=== PATIENT | female | born 1980 | race Caucasian/White ===

== ENCOUNTER 2018-06-23 10:54 | Emergency (ER) | payer BC ==
[2018-06-23 13:08] VITALS: BP 119/78
--- NOTE | 2018-06-23 13:22 | UC ---
Complaint Female HPI - HPI Summary HPI Summary: "I have a uti" for past few days and the beginning of BV. Describes as frequent - burning urination plus starting to note a vaginal d/c with odor. states no concern for std but would like urine tested as a precaution. no abdominal pain, flank pain or fever. states has a hx of uti's and BV and this is the same. Took AZO GRID MOLDER. - History Of Current Complaint Chief Complaint: UCGU Stated Complaint: UTI Time Seen by Provider: 06/23/18 13:15 Hx Obtained From: Patient Hx Last Menstrual Period: 05/31/18 Onset/Duration: Gradual Onset Timing: Constant Pain Intensity: 0 Aggravating Factor(s): Nothing Alleviating Factor(s): Nothing Associated Signs And Symptoms: Negative: Fever, Back Pain - Allergies/Home Medications Allergies/Adverse Reactions: Allergies Allergy/AdvReac Type Severity Reaction Status Date / Time NSAIDS (Non-Steroidal Allergy Difficulty Verified 06/23/18 13:00 Anti-Inflamma Breathing Home Medications: Home Medications Cranberry Fruit Concentrate [Azo Cranberry] 250 mg PO BID PRN 06/23/18 [History Confirmed 06/23/18] PMH/Surg Hx/FS Hx/Imm Hx - Additional Past Medical History Additional PMH: BV, UTI's GI/ History: Gastroesophageal Reflux Psychological History: Anxiety - Surgical History Surgical History: Yes Surgery Procedure, Year, and Place[place] [facility] [place] Family History Known Family History: Positive: None Negative: Cardiac Disease, Hypertension, Diabetes - Social History Occupation: Employed Full-time Alcohol Use: Daily Substance Use Type: None Smoking Status (MU): Current Some Day Smoker Type: Cigarettes Amount Used/How Often: 2-3 CIGS DAILY Household Exposure Type: Cigarettes - Immunization History Most Recent Influenza Vaccination: none Vaccination Up to Date: Yes Review of Systems Constitutional: Negative Skin: Negative Eyes: Negative ENT: Negative Respiratory: Negative Cardiovascular: Negative Gastrointestinal: Negative Genitourinary: Dysuria, Frequency, Urgency, Vaginal/Penile Discharge Motor: Negative Neurovascular: Negative Musculoskeletal: Negative Neurological: Negative Psychological: Negative Is Patient Immunocompromised?: No All Other Systems Reviewed And Are Negative: Yes Physical Exam Triage Information Reviewed: Yes Appearance: Well-Appearing Vital Signs: Initial Vital Signs Temp 98.3 F 06/23/18 13:01 Pulse 80 06/23/18 13:01 Resp 18 06/23/18 13:01 BP 119/78 06/23/18 13:01 Pulse Ox 96 06/23/18 13:01 Eyes: Positive: Conjunctiva Clear ENT: Positive: Normal ENT inspection Neck: Positive: Supple, Nontender, No Lymphadenopathy Respiratory: Positive: Lungs clear, Normal breath sounds Cardiovascular: Positive: RRR, No Murmur Abdomen Description: Positive: Nontender, No Organomegaly, Soft. Negative: CVA Tenderness (R), CVA Tenderness (L), Distended, Guarding Bowel Sounds: Negative: Present Pelvic Exam: Positive: Other - Pt declined citing hx uti's / BV and this is the same thus does not feel necessary. Musculoskeletal: Positive: ROM Intact Neurological: Positive: Alert Psychological: Positive: Age Appropriate Behavior Skin Exam: Normal Diagnostics - Laboratory Diagnostic Studies Completed/Ordered: urine culture, gc/chlamydia are pending. Complaint Female Dx - Course Course Of Treatment: since pt declined pelvic exam, I am going to tx presumptively for uti and BV. - Differential Dx/Diagnosis Provider Diagnoses: Dysuria. Vaginitis Discharge - Sign-Out/Discharge Documenting (check all that apply): Patient Departure All imaging exams completed and their final reports reviewed: No Studies - Discharge Plan Condition: Stable Disposition: HOME Prescriptions: metroNIDAZOLE VAGINAL 0.75%* 1 applic VAGINAL BEDTIME 5 Days #1 tube Nitrofurantoin Monohyd/M-Cryst [Macrobid 100 mg Capsule] 100 mg PO BID 5 Days # 10 cap Patient Education Materials: Bacterial Vaginosis (ED), Urinary Tract Infection in Women (ED) Referrals: Denisa Henry MD [Primary Care Provider] - 7 Days - Billing Disposition and Condition Condition: STABLE Disposition: Home
== END 2018-06-23 14:03 | disposition home or self-care (01) ==
LOC: UCCORT 10:54
DX: R30.0 Dysuria (principal); N76.0 Acute vaginitis; Z88.6 Allergy status to analgesic agent
CPT/HCPCS: 36415; 86703; 87086; 87491; 87591; 99212; G0463

== ENCOUNTER 2019-03-18 10:01 | Emergency (ER) | payer BC ==
[2019-03-18 10:26] VITALS: BP 114/76
--- NOTE | 2019-03-18 10:27 | UC ---
Throat Pain/Nasal Pa HPI - HPI Summary HPI Summary: 38-year-old female who had cold symptoms approximately 2 weeks ago which all resolved other than a sore throat which has continued over the past 2 weeks. She denies any fever or chills. She is requesting a urine test because she is not on any control and is attempting to conceive. - History of Current Complaint Chief Complaint: UCGeneralIllness Stated Complaint: SORE THROAT Time Seen by Provider: 03/18/19 10:06 Hx Obtained From: Patient Hx Last Menstrual Period: ~02/15/19 ?: No - requesting a test here Onset/Duration: Gradual Onset Severity: Mild Pain Intensity: 6 Cough: None - Patient had a nonproductive cough which resolved. Associated Signs & Symptoms: Positive: Other - Mild nasal congestion today. - Allergies/Home Medications Allergies/Adverse Reactions: Allergies Allergy/AdvReac Type Severity Reaction Status Date / Time NSAIDS (Non-Steroidal Allergy Difficulty Verified 03/18/19 10:20 Anti-Inflamma Breathing Home Medications: Home Medications Pseudoephedrine HCl [Sudafed 24-Hour] 240 mg PO DAILY PRN 03/18/19 [History Confirmed 03/18/19] PMH/Surg Hx/FS Hx/Imm Hx Previously Healthy: Yes - Surgical History Surgical History: Yes Surgery Procedure, Year, and Place: Tonsillectomy, 2002, [facility] [place] - Family History Known Family History: Positive: None Negative: Cardiac Disease, Hypertension, Diabetes - Social History Occupation: Employed Full-time Alcohol Use: Occasionally Substance Use Type: None Smoking Status (MU): Former Smoker Type: Cigarettes Amount Used/How Often: 2-3 CIGS DAILY Household Exposure Type: Cigarettes - Immunization History Most Recent Influenza Vaccination: none Vaccination Up to Date: Yes Review of Systems All Other Systems Reviewed And Are Negative: Yes ENT: Positive: Sore Throat - Today basically the patient only has a sore throat however she did have cold symptoms for approximately 2 weeks which have resolved spontaneously. Is Patient Immunocompromised?: No Physical Exam Triage Information Reviewed: Yes Appearance: Well-Appearing, No Pain Distress, Well-Nourished Vital Signs: Initial Vital Signs Temp 98.9 F 03/18/19 10:19 Pulse 100 03/18/19 10:19 Resp 18 03/18/19 10:19 BP 114/76 03/18/19 10:19 Pulse Ox 100 03/18/19 10:19 Vital Signs Reviewed: Yes Eyes: Positive: Conjunctiva Clear ENT: Positive: Pharynx normal, Nasal congestion, TMs normal, Uvula midline. Negative: Tonsillar swelling, Tonsillar exudate, Trismus, Muffled voice, Hoarse voice Neck: Positive: Supple, Nontender, Enlarged Nodes @ - Very minimal tonsillar lymph node enlargement more on the left than the right. Respiratory: Positive: Lungs clear, Normal breath sounds, No respiratory distress, No accessory muscle use Cardiovascular: Positive: RRR, No Murmur, Pulses Normal, Brisk Capillary Refill Abdomen Description: Positive: Nontender, No Organomegaly, Soft Bowel Sounds: Positive: Present Musculoskeletal Exam: Normal Neurological Exam: Normal Psychological Exam: Normal Skin Exam: Normal Throat Pain/Nasal Course/Dx - Course Course Of Treatment: Rapid strep test: Negative Urine test: Negative - Differential Dx/Diagnosis Provider Diagnosis: Pharyngitis Discharge - Sign-Out/Discharge Documenting (check all that apply): Patient Departure All imaging exams completed and their final reports reviewed: No Studies - Discharge Plan Condition: Fair Disposition: HOME Patient Education Materials: Pharyngitis (ED) Referrals: Denisa Henry MD [Primary Care Provider] - Additional Instructions: Increase fluids, warm saltwater gargles, throat lozenges. Definite follow-up with your primary care provider if no improvement in 3 or 4 days or if worsening symptoms. - Billing Disposition and Condition Condition: FAIR Disposition: Home - Attestation Statements Provider Attestation: Per institutional requirements, I have reviewed the chart, however, I was not consulted specifically or made aware of this patient by the midlevel provider. I did not personally evaluate, interact with , or disposition this patient.
== END 2019-03-18 11:00 | disposition home or self-care (01) ==
LOC: UCCORT 10:01
DX: J02.9 Acute pharyngitis, unspecified (principal); Z87.891 Personal history of nicotine dependence
CPT/HCPCS: 84702; 87651; 99211; G0463

== ENCOUNTER 2019-04-20 13:13 | Emergency (ER) | payer BC ==
--- OUTSIDE RECORDS SUMMARY | 2019-04-20 13:30 | XMS REPORT | Continuity of Care Document ---
:1980 External Reference #:[id number] Author Name Denisa Henry M.D. Address [address] [place] [address] Care Team Providers Name Role Phone Denisa Henry MD Primary Care Physician Unavailable Payers Date Identification Numbers Payment Provider Subscriber Policy Number: [id number] [employer] Christina Mikie Rhonda PayID: [id number] [address] [address] [place] [address] Expires: 2006 Policy Number: [id number] [employer] Epo Christina Deluna Rhonda PayID: [id number] [address] [address] [place] [address] Problems Active Problems Provider Date Otitis media Denisa Henry M.D. Onset: 03/02/2011 Allergic rhinitis Denisa Henry M.D. Onset: 03/02/2011 Generalized anxiety disorder Denisa Henry M.D. 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 Tobacco Use Start: Unknown Current Cigarette Smoker 1/2 Pack Daily ETOH Use Occasionally consumes alcohol Tobacco Use Start: Unknown End: Patient is a former smoker Unknown Smoking Status Reviewed: 05/18/18 Patient is a former smoker Seat Belt/Car Seat Always uses a seat belt Currently Active The patient is currently sexually active Condom Use Patient always uses condoms Allergies, Adverse Reactions, Alerts Active Allergies Reaction Severity Comments Date Cipro nausea 11/15/2006 Ibuprofen nasal congestion 11/17/2009 NSAIDs 03/15/2018 Inactive Allergies NKDA 12/01/2005 Medications Active Medications SIG Qnty Indications Ordering Provider Date Epipen 2-Scott as directed 2units Denisa Henry M.D. 03/15/2018 0.3mg/0.3ML Solution Auto-Inject Omeprazole 1 by mouth every 90caps K21.9 Denisa Henry M.D. 07/27/[address] Tor UMAÑA 2 puffs 4 x daily 8.500gm J30.1 Denisa Henry M.D. 07/27/2017 108(90Base) mcg/Act Aerosol Xanax 1 by mouth and 90tabs F41.1 Denisa Henry M.D. 10/14/2008 0.5mg Tablets every 8 hours as needed History Medications Metronidazole 1 applicator full 70gm N76.0 Denisa Henry, 09/26/2017 - 0.75% Gel nightly for one M.D. 01/12/2018 week Azithromycin 2 by mouth today, 1 6tabs J06.9 Denisa Henry, 09/26/2017 - 250mg by mouth day 2 thru M.D. 11/21/2017 Tablets 5 Fluconazole 1 by mouth every 7tabs J06.9 Denisa Henry, 09/26/2017 - 100mg day M.D. 11/21/2017 Tablets Azithromycin 2 by mouth today, 1 6tabs J02.9 Denisa Henry, 03/24/2016 - 250mg by mouth day 2 thru M.D. 12/23/2016 Tablets 5 Meclizine HCL 1-2 tabs by mouth 30tabs 386.31 Denisa Henry, 05/30/2014 - 12.5mg three times a day M.D. 03/09/2017 Tablets as needed Azithromycin 2 po today, 1 po 5tabs 382.90 Denisa Henry, 11/27/2013 - 250mg day 2 thru 5 M.D. 05/30/2014 Tablets Metoclopramide HCL 1 tab po q 6 hrs 30tabs 530.81 Denisa Henry, 2011 - 5mg prn M.D. 03/09/2017 Tablets Sertraline HCL 1 po qd 90tabs F41.1 Denisa Henry, 04/03/2012 - 50mg M.D. 03/09/2017 Tablets Azithromycin 2 po today, 1 po 6tabs 382.90 Denisa Henry, 03/02/2011 - 250mg day 2 thru 5 M.D. 12/21/2011 Tablets Saline Nasal [place] 1 o2 sprays q 4Oz 477.90 Denisa Henry, 03/02/2011 - nostril q 4 hours M.D. 12/21/2011 0.65% Solution prn Meclizine HCL 1-2 tabs po tid prn 30tabs 386.35 Denisa Henry, 12/07/2010 - 12.5mg M.D. 12/21/2011 Tablets Work Note the above may 486.00 Denisa Henry, 09/21/2010 - return to work on M.D. 12/21/2011 09/22/10 Azithromycin 2 po today, 1 po 6tabs Denisa Henry, 03/24/2010 - 250mg day 2 thru 5 M.D. 03/02/2011 Tablets Diflucan 1 qd x 7 days 3tabs Denisa Henry, 03/24/2010 - 100mg Tablets M.D. 12/21/2011 Work Note may return to work 372.01 Denisa Henry, 10/28/2009 - no restrictions on M.D. 11/17/2009 10/30/2009 Diflucan 1 po qd 2tabs 473.8 Denisa Henry, 10/28/2009 - 150mg Tablets M.D. 11/17/2009 Clarithromycin 1 po bid with food 28tabs 473.8 Denisa Henry, 10/28/2009 - 500mg M.D. 12/21/2011 Tablets Tobradex 1 qtt q 4 hours 5ml 372.01 Denisa Henry, 10/28/2009 - 0.3-0.1% while awake M.D. 11/17/2009 Suspension Nicotine apply daily 30units Sissy Helms MD 06/20/2009 - 21mg/24HR 11/17/2009 Patches 24HR Ceftin 1 po bid for 5 days 10tabs Sissy Helms MD 06/04/2009 - 250mg Tablets 06/20/2009 Levaquin 1 po qd 3tabs Sissy Helms MD 05/30/2009 - 500mg Tablets 06/04/2009 Diflucan 1 by mouth every 3tabs Denisa Henry, 05/30/2009 - 150mg Tablets day for 3 days M.D. 12/04/2018 Lunesta 1 po qhs prn 30tabs 780.52 Denisa Henry, 08/26/2008 - 2mg Tablets M.D. 11/17/2009 Citalopram 1 PO qd 90tabs 300.02 Denisa Henry, 07/08/2008 - Hydrobromide M.D. 10/14/2008 10mg Tablets Xanax 1 po tid prn 30tabs 300.02 Denisa Henry, 04/08/2008 - 0.5mg Tablets M.D. 07/08/2008 Xanax 1 PO Tablet For 90tabs 300.02 Denisa Henry, 12/19/2007 - 0.25mg Tablets Anxiety tid prn M.D. 12/19/2007 Xanax 1 po tid 90tabs 300.02 Denisa Henry, 12/19/2007 - 0.5mg Tablets M.D. 04/08/2008 Atarax 1 po bid 10tabs Sissy Helms MD 12/13/2007 - 10mg Tablets 12/19/2007 Meclizine 1 po q 6 hours prn 30tabs 386.31 Denisa Henry, 08/14/2007 - 12.5mg M.D. 01/16/2008 Tablets Prevacid 1 po qd 90caps 530.81 Denisa Henry, 08/14/2007 - 30mg Capsules M.D. 01/16/2008 Albuterol Inhalation 2 puff qid prn 6units Denisa Henry, 12/06/2005 - M.D. 08/14/2007 90mcg/Dose Aerosol Zithromax Tri-Scott 1 tab po qd for 3 3tabs 461.9 Denisa Henry 12/06/2005 - 500mg days M.D. 12/28/2005 Tablets Tramadol HCL 1 po q 6 hours prn 180tabs Janene Huff - 50mg pain 04/03/2012 Tablets Medications Administered in Office Medication SIG Qnty Indications Ordering Provider Date H1N1 Administration-Use Denisa Henry M.D. 09/08/2009 Injection Immunizations CPT Code Status Date Vaccine Lot # [id number] Given 03/20/2010 Tetanus Shot [id number] Given 03/24/1998 DT Immunization DIP/Tet (History Only) Vital Signs Date Vital Result Comment 04/11/2019 3:28pm BP Systolic 115 mmHg BP Diastolic 62 mmHg Heart Rate 82 /min Height 64 inches 5'4" Weight 125.00 lb BMI (Body Mass Index) 21.5 kg/m2 O2 % BldC Oximetry 98 % 02/07/2019 11:09am BP Systolic 112 mmHg BP Diastolic 68 mmHg Heart Rate 67 /min Height 64 inches 5'4" Weight 125.00 lb BMI (Body Mass Index) 21.5 kg/m2 O2 % BldC Oximetry 98 % 12/04/2018 3:34pm BP Systolic 110 mmHg Heart Rate 66 /min Height 64 inches 5'4" Weight 125.00 lb BMI (Body Mass Index) 21.5 kg/m2 O2 % BldC Oximetry 99 % 10/10/2018 1:35pm Height 64 inches 5'4" Weight 124.00 lb BMI (Body Mass Index) 21.3 kg/m2 08/15/2018 2:58pm BP Systolic 108 mmHg BP Diastolic 68 mmHg Heart Rate 84 /min Respiratory Rate 18 /min Height 64 inches 5'4" Weight 124.00 lb BMI (Body Mass Index) 21.3 kg/m2 O2 % BldC Oximetry 98 % 07/12/2018 4:01pm BP Systolic 90 mmHg BP Diastolic 62 mmHg Height 64 inches 5'4" Weight 125.00 lb BMI (Body Mass Index) 21.5 kg/m2 05/18/2018 10:03am BP Systolic 108 mmHg BP Diastolic 70 mmHg Height 64 inches 5'4" Weight 125.00 lb BMI (Body Mass Index) 21.5 kg/m2 03/15/2018 2:49pm BP Systolic 108 mmHg BP Diastolic 66 mmHg Height 64 inches 5'4" Weight 129.00 lb BMI (Body Mass Index) 22.1 kg/m2 01/12/2018 2:52pm BP Systolic 122 mmHg BP Diastolic 66 mmHg Height 64 inches 5'4" Weight 132.00 lb BMI (Body Mass Index) 22.7 kg/m2 11/21/2017 3:01pm BP Systolic 110 mmHg BP Diastolic 70 mmHg Respiratory Rate 18 /min Height 64 inches 5'4" Weight 132.00 lb BMI (Body Mass Index) 22.7 kg/m2 09/26/2017 3:35pm BP Systolic 118 mmHg BP Diastolic 66 mmHg Body Temperature 97.6 F 07/27/2017 3:37pm BP Systolic 118 mmHg BP Diastolic 76 mmHg 05/23/2017 10:09am BP Systolic 112 mmHg BP Diastolic 70 mmHg Height 64 inches 5'4" Weight 132.00 lb BMI (Body Mass Index) 22.7 kg/m2 03/09/2017 10:07am BP Systolic 118 mmHg BP Diastolic 62 mmHg 12/23/2016 10:19am BP Systolic 112 mmHg BP Diastolic 60 mmHg 10/12/2016 3:20pm BP Systolic 120 mmHg BP Diastolic 68 mmHg 08/16/2016 3:29pm BP Systolic 112 mmHg BP Diastolic 70 mmHg 08/10/2016 3:38pm BP Systolic 110 mmHg BP Diastolic 70 mmHg Height 62 inches 5'2" Weight 135.00 lb BMI (Body Mass Index) 24.7 kg/m2 06/08/2016 2:06pm BP Systolic 102 mmHg BP Diastolic 64 mmHg 03/24/2016 3:31pm BP Systolic 120 mmHg BP Diastolic 68 mmHg 01/14/2016 2:34pm BP Systolic 130 mmHg BP Diastolic 80 mmHg 11/11/2015 3:48pm BP Systolic 110 mmHg BP Diastolic 68 mmHg 10/22/2015 11:44am BP Systolic 122 mmHg BP Diastolic 60 mmHg 07/09/2015 3:19pm BP Systolic 116 mmHg BP Diastolic 66 mmHg 05/01/2015 11:50am BP Systolic 108 mmHg BP Diastolic 60 mmHg 02/04/2015 3:38pm BP Systolic 102 mmHg BP Diastolic 70 mmHg 10/21/2014 10:28am BP Systolic 120 mmHg BP Diastolic 70 mmHg 10/01/2014 3:32pm BP Systolic 122 mmHg BP Diastolic 68 mmHg 05/30/2014 1:46pm BP Systolic 92 mmHg BP Diastolic 60 mmHg 03/11/2014 3:22pm BP Systolic 104 mmHg BP Diastolic 70 mmHg 12/25/2013 3:38pm BP Systolic 98 mmHg BP Diastolic 60 mmHg Height 62 inches 5'2" Weight 130.00 lb BMI (Body Mass Index) 23.8 kg/m2 11/27/2013 3:46pm BP Systolic 102 mmHg BP Diastolic 60 mmHg Height 62 inches 5'2" Weight 130.00 lb per patient BMI (Body Mass Index) 23.8 kg/m2 08/08/2013 2:52pm BP Systolic 114 mmHg BP Diastolic 60 mmHg 04/17/2013 11:58am BP Systolic 110 mmHg BP Diastolic 58 mmHg Height 62 inches 5'2" 08/07/2012 3:41pm BP Systolic 104 mmHg BP Diastolic 60 mmHg 07/26/2012 10:06am BP Systolic 104 mmHg BP Diastolic 62 mmHg 07/18/2012 10:40am BP Systolic 108 mmHg BP Diastolic 60 mmHg 04/03/2012 3:32pm BP Systolic 114 mmHg BP Diastolic 62 mmHg Height 62 inches 5'2" Weight 130.00 lb BMI (Body Mass Index) 23.8 kg/m2 12/21/2011 3:47pm BP Systolic 110 mmHg BP Diastolic 60 mmHg 03/02/2011 12:46pm BP Systolic 112 mmHg BP Diastolic 68 mmHg Body Temperature 98.3 F Weight 129.00 lb 12/07/2010 3:34pm BP Systolic 120 mmHg BP Diastolic 56 mmHg Weight 129.00 lb 09/21/2010 3:48pm BP Systolic 132 mmHg BP Diastolic 70 mmHg Weight 129.00 lb 03/20/2010 10:20am BP Systolic 110 mmHg BP Diastolic 60 mmHg 11/17/2009 3:45pm BP Systolic 120 mmHg BP Diastolic 62 mmHg Weight 126.00 lb 10/28/2009 2:50pm Body Temperature 98.6 F 09/08/2009 3:54pm BP Systolic 110 mmHg BP Diastolic 66 mmHg 06/20/2009 10:21am BP Systolic 104 mmHg BP Diastolic 70 mmHg Weight 129.00 lb 05/30/2009 12:50pm BP Systolic 110 mmHg BP Diastolic 64 mmHg Body Temperature 97.7 F 10/14/2008 3:48pm BP Systolic 110 mmHg BP Diastolic 70 mmHg Height 64 inches 5'4" Weight 130.00 lb BMI (Body Mass Index) 22.3 kg/m2 08/26/2008 3:37pm BP Systolic 112 mmHg BP Diastolic 60 mmHg Height 64 inches 5'4" Weight 129.00 lb BMI (Body Mass Index) 22.1 kg/m2 07/08/2008 3:49pm BP Systolic 110 mmHg BP Diastolic 54 mmHg Height 64 inches 5'4" Weight 130.00 lb BMI (Body Mass Index) 22.3 kg/m2 04/08/2008 4:05pm BP Systolic 110 mmHg BP Diastolic 62 mmHg Height 64 inches 5'4" Weight 135.00 lb BMI (Body Mass Index) 23.2 kg/m2 01/16/2008 3:26pm BP Systolic 112 mmHg BP Diastolic 58 mmHg Height 64 inches 5'4" Weight 137.00 lb BMI (Body Mass Index) 23.5 kg/m2 12/19/2007 3:37pm BP Systolic 122 mmHg BP Diastolic 70 mmHg Height 64 inches 5'4" 12/13/2007 1:59pm BP Systolic 102 mmHg BP Diastolic 60 mmHg Body Temperature 98.8 F Height 64 inches 5'4" 08/23/2007 3:41pm BP Systolic 118 mmHg BP Diastolic 74 mmHg Height 64 inches 5'4" Weight 147.00 lb BMI (Body Mass Index) 25.2 kg/m2 08/14/2007 4:04pm BP Systolic 110 mmHg BP Diastolic 60 mmHg Body Temperature 98.0 F Height 64 inches 5'4" Weight 146.00 lb BMI (Body Mass Index) 25.1 kg/m2 11/15/2006 3:38pm BP Systolic 110 mmHg BP Diastolic 64 mmHg Height 64 inches 5'4" Weight 136.00 lb BMI (Body Mass Index) 23.3 kg/m2 10/31/2006 3:42pm Body Temperature 96.9 F 12/28/2005 4:07pm BP Systolic 118 mmHg BP Diastolic 74 mmHg Weight 135.00 lb 12/06/2005 1:43pm BP Systolic 122 mmHg BP Diastolic 74 mmHg Weight 140.00 lb Results Test Date Facility Test Result H/L Range Note Laboratory test 03/18/2019 [facility] , Negative Negative [address] [place] [address] [phone] Laboratory test 03/18/2019 [facility] Rapid Strep Negative Negative [address] [place] [address] [phone] FSH & LH 02/07/2019 [facility] FSH 5.5 MIU/ML [address] [place] [address] [phone] LH 5.1 MIU/ML 4 Laboratory test finding 02/07/2019 [facility] Progesterone 2.7 NG/ML [address] [place] [address] [phone] Prolactin 12.5 NG/ML 6 Laboratory test 09/08/2018 [facility] Negative Negative [address] , [place] [address] Urine [phone] Urine Culture 09/08/2018 [facility] Urine Culture SEE RESULT 8, And [address] BELOW 9 [place] [address] [phone] Laboratory test 06/23/2018 [facility] HIV 1&2 AB Nonreactive Nonreactive 10, finding [address] Self Referred [address] [place] [address] [phone] GC/Chlamydia 06/23/2018 [facility] Chlamydia Negative Negative 12 Amplified Rna [address] [place] [address] Rna [phone] Neisseria gonorrhoeae (GC) Rna Negative Negative Urine Culture And 06/23/2018 [facility] Urine SEE RESULT [address] [address] [phone] Laboratory test 11/24/2017 [facility] Treponema Negative Negative 14, finding [address] Antibody [address] [place] [address] [place] [phone] Hepatitis 11/24/2017 [facility] Hepatitis A Negative Negative Evaluation [address] Antibody IgM [place] [id number] [phone] HBsAg Screen [Ref Lab] Negative Negative Hepatitis B Core IgM Negative Negative HCV Signal/Cutoff ratio 0.1 s/corat 0.0-0.9 16 Laboratory test 09/29/2017 [facility] T4,Free,Calculated 2.17 1.4-3.[address] [place] [address] [phone] Thyroid Panel + 09/29/2017 [facility] T4,Total 7.1 4.5-12.[address] g/[place] [address] [phone] T3 Uptake 30.5 % 22.0-35.0 TSH 2.07 mIU/L 0.40-4.50 17 CBC W/ Diff & PLT 09/29/2017 [facility] WBC 5.5 thous/L 3.8-10.[address] [place] [address] [phone] RBC 4.07 mill/L 3.80-5.10 Hemoglobin 11.6 g/dL Low 11.7-15.5 Hematocrit 36.2 % 35.0-45.0 MCV 89.0 FL 80.0-100.0 MCH 28.4 pg 27.0-33.0 MCHC 31.9 g/dL Low 32.0-36.0 RDW 17.0 % High 11.0-15.0 Platelet Count 256 thous/L 140-400 Platelet Sufficiency PENDING MPV 8.5 FL 7.5-12.5 Neutrophils,Absolute 3620 cells/L [phone] Bands,Absolute PENDING Metamyelocytes,Absolute PENDING Myelocytes,Absolute PENDING Promyelocytes,Absolute PENDING Lymphocytes,Absolute 1320 cells/L 850-3900 Monocytes,Absolute 440 cells/L 200-950 Eosinophils,Absolute 140 cells/L 15-500 Basophils,Absolute 30 cells/L 0-200 Blast Cells,Absolute PENDING Nucleated RBC,Absolute PENDING Total Neutrophils,% 65 % 40-75 Bands,% PENDING Metamyelocytes,% PENDING Myelocytes,% PENDING Promyelocytes,% PENDING Total Lymphocytes,% 24 % 12-47 Monocytes,% 8 % 4-12 Eosinophils,% 3 % 0-4 Basophils,% 0 % 0-1 18 Blasts,% PENDING Nucleated RBC PENDING RBC Morphology PENDING Anisocytosis PENDING Poikilocytosis PENDING Microcytosis PENDING Macrocytosis PENDING Polychromasia PENDING Hypochromasia PENDING Target Cells PENDING Basophilic Stippling PENDING Comment PENDING Lipid Panel With 09/29/2017 [facility] Cholesterol 225 mg/dL High <199 Reflex To Direct LDL [address] [facility] [place], [place] [id number] [phone] HDL Cholesterol 122 mg/dL >50 19 Cholesterol/HDL Ratio 1.8 CALC <5.0 LDL Chol,Calculated 88 mg/dL 0-100 20 Triglycerides 67 mg/dL <150 Non-HDL Cholesterol 103 mg/dL <130 21 Basic Metab W/O CA 09/29/2017 [facility] Sodium 136 mmol/L 135-146 [address] [place] [address] [phone] Potassium 4.3 mmol/L 3.5-5.3 Chloride 102 mmol/L 98-110 Carbon Dioxide 23 mmol/L 20-31 Glucose 97 mg/dL 65-99 22 Urea Nitrogen (BUN) 14 mg/dL 7-25 Creatinine 0.66 mg/dL 0.50-1.10 BUN/Creatinine Ratio 21.7 6-22 Laboratory test 09/29/2017 [facility] HCG,Total,QL NEGATIVE Negative [address] [place] [address] [phone] Basic Metabolic 08/13/2016 [facility] Sodium 139 mmol/L 135-146 [address] [place] [address] [phone] Potassium 4.2 mmol/L 3.5-5.3 Chloride 105 mmol/L 98-110 Carbon Dioxide 25 mmol/L 20-31 Calcium 9.5 mg/dL 8.6-10.2 Glucose 85 mg/dL 65-99 25 Urea Nitrogen 12 mg/dL 7-25 Creatinine 0.63 mg/dL 0.50-1.10 BUN/Creatinine Ratio 19.4 6-22 Egfr Non-Afr. [place]ian 115 ML/MIN/1.73M2 > Or=60 Egfr 134 ML/MIN/1.73M2 > Or=60 Iron,Tibc,Fol,B12,Harvey 08/13/2016 [facility] Iron,Total 78 g/dL 40-[address] [place] [address] [phone] Tibc 454 g/dL High 250-450 % Saturation 17 % 11-50 Ferritin 9 NG/ML Low 10-154 Folate,Serum 16.5 NG/ML 26 Vitamin B12,Serum 464 pg/mL 200-1100 CBC W/ Diff & PLT 08/13/2016 [facility] WBC 5.1 thous/L 3.8-10.[address] [place] [address] [phone] RBC 3.88 mill/L 3.80-5.10 Hemoglobin 11.4 g/dL Low 11.7-15.5 Hematocrit 35.0 % 35.0-45.0 MCV 90.4 FL 80.0-100.0 MCH 29.4 pg 27.0-33.0 MCHC 32.6 g/dL 32.0-36.0 RDW 15.6 % High 11.0-15.0 Platelet Count 270 thous/L 140-400 Platelet Sufficiency PENDING MPV 8.3 FL 7.5-11.5 Neutrophils,Absolute 2480 cells/L [phone] Bands,Absolute PENDING Metamyelocytes,Absolute PENDING Myelocytes,Absolute PENDING Promyelocytes,Absolute PENDING Lymphocytes,Absolute 1630 cells/L 850-3900 Monocytes,Absolute 510 cells/L 200-950 Eosinophils,Absolute 510 cells/L High 15-500 Basophils,Absolute 10 cells/L 0-200 Blast Cells,Absolute PENDING Nucleated RBC,Absolute PENDING Total Neutrophils,% 48 % 40-75 Bands,% PENDING Metamyelocytes,% PENDING Myelocytes,% PENDING Promyelocytes,% PENDING Total Lymphocytes,% 32 % 12-47 Monocytes,% 10 % 4-12 Eosinophils,% 10 % High 0-4 Basophils,% 0 % 0-1 27 Blasts,% PENDING Nucleated RBC PENDING RBC Morphology PENDING Anisocytosis PENDING Poikilocytosis PENDING Microcytosis PENDING Macrocytosis PENDING Polychromasia PENDING Hypochromasia PENDING Target Cells PENDING Basophilic Stippling PENDING Comment PENDING Lipid Panel 08/13/2016 [facility] Cholesterol 251 mg/dL High 125-[address] [place], [place] [id number] [phone] HDL Cholesterol 121 mg/dL > Or=46 28 Cholesterol/HDL Ratio 2.1 < Or=5.0 LDL Chol,Calculated 120 mg/dL <130 29 Triglycerides 50 mg/dL <150 Non-HDL Cholesterol 130 mg/dL 30 TSH & T4,Free 08/13/2016 [facility] TSH 1.86 mIU/L 0.40-4.[address] [place] [address] [phone] T4,Free 0.9 ng/dL 0.8-1.8 Rapid Influenza 01/15/2016 [facility] Seismic Influenza A NEGATIVE N Negative 32 A & B Molecular [address] [place] [address] [phone] Influenza B Molecular NEGATIVE N Negative Laboratory test 07/18/2015 [facility] Barnes Screen NEGATIVE Negative finding [address] (Heterophile) [place] [address] [phone] CBS W/Automated 07/11/2015 [facility] White Blood Count 4.3 K/uL 3.1-10.[address] [place] [address] [phone] Red Blood Count 3.98 M/uL 3.90-5.40 Hemoglobin 12.4 gm/dL 11.6-15.8 Hematocrit 38.9 % 36.0-46.1 Mean Cell Volume 97.7 fl 80.9-99.0 Mean Corpuscular HGB 31.2 pg 25.9-32.7 Mean Corpuscular HGB Conc 31.9 g/dL 30.8-34.3 Platelet Count 227 K/uL 155-360 Red Cell Distri Width SD 43.1 fl 3-47 Red Cell Distri Width %CV 12.4 % 11.7-14.4 Mean Platelet Volume 9.4 fL 8.9-12.4 Neut% 41.2 % 40.4-72.8 Lymph % 37.2 % 17.0-46.1 Barnes % 13.6 % High 4.3-13.2 Eo% 7.3 % High 0.0-6.6 Bas% 0.7 % 0.0-1.1 Neut# 1.75 K/uL 1.0-7.0 Lymph # 1.58 K/uL Low 1.8-7.0 Barnes # 0.58 K/uL 0.3-0.9 Eos # 0.31 K/uL 0.0-0.5 Baso # 0.03 K/uL 0.0-0.1 TSH+Free T4 07/11/2015 [facility] Thyroid Stim 1.55 uIU/mL 0.36-3.74 ([place] & [address] Hormone [facility] [place] [address] [phone] Free T4 0.93 ng/dL 0.76-1.46 Basic Metabolic Panel 07/11/2015 [facility] Glucose 85 mg/dL 74-[address] [place] [address] [phone] BUN 13 mg/dL 7-18 Creatinine 0.8 mg/dL 0.6-1.3 Glom Filtration Rate, Estimate >60 mL/min >60 If >60 mL/min >60 33 BUN/Creat 16.2 ratio Sodium 138 mmol/L 136-145 Potassium 4.1 mmol/L 3.5-5.1 Chloride 104 mmol/L 98-107 Carbon Dioxide 27 mmol/L 21-32 Anion Gap 7 mEq/L Low 8-16 Calcium 9.0 mg/dL 8.5-10.1 Basic Metabolic Panel 12/13/2013 [facility] Sodium 138 mmol/L 135-146 [address] [facility] [place] [address] [phone] Potassium 4.1 mmol/L 3.5-5.3 Chloride 104 mmol/L 98-110 Carbon Dioxide 25 mmol/L 19-30 Calcium 9.4 mg/dL 8.6-10.2 Glucose 82 mg/dL 65-99 34 Urea Nitrogen 14 mg/dL 7-25 Creatinine 0.61 mg/dL 0.50-1.10 BUN/Creatinine Ratio 22.5 High 6-22 Egfr Non-Afr. Z[place]ian 118 ML/MIN/1.73M2 > Or=60 Egfr 137 ML/MIN/1.73M2 > Or=60 Lipid Panel 12/13/2013 [facility] Cholesterol 228 mg/dL High 125-200 6 [place] [address] [phone] HDL Cholesterol 119 mg/dL > Or=46 35 Cholesterol/HDL Ratio 1.9 < Or=5.0 LDL Chol,Calculated 96 mg/dL <130 36 Triglycerides 63 mg/dL <150 Non-HDL Cholesterol 109 mg/dL 37 CBC W/ Diff & PLT 12/13/2013 [facility] WBC 7.6 thous/L 3.8-10.8 6 [place] [address] [phone] RBC 4.08 mill/L 3.80-5.10 Hemoglobin 13.0 g/dL 11.7-15.5 Hematocrit 38.9 % 35.0-45.0 MCV 95.3 FL 80.0-100.0 MCH 31.8 pg 27.0-33.0 MCHC 33.4 g/dL 32.0-36.0 RDW 12.8 % 11.0-15.0 Platelet Count 217 thous/L 140-400 Neutrophils,Absolute 5320 cells/L 1975-8949 Lymphocytes,Absolute 980 cells/L 850-3900 Monocytes,Absolute 730 cells/L 200-950 Eosinophils,Absolute 530 cells/L High 15-500 Basophils,Absolute 30 cells/L 0-200 Total Neutrophils,% 70 % Not Established Total Lymphocytes,% 13 % Not Established Monocytes,% 10 % Not Established Eosinophils,% 7 % Not Established Basophils,% 0 % Not Established Laboratory test finding 12/13/2013 [facility] TSH 1.60 mIU/L 0.40-4.[address] [place] [address] [phone] T4,Free 1.1 ng/dL 0.8-1.8 Throat-Beta Strept 09/15/2012 [facility] Throat Beta (SEE NOTE) [address] [place] [address] [phone] Urine Culture & 07/03/2012 [facility] M [address] ---- <[place] [address] NOTE> [phone] Urine Culture & 11/02/2011 [facility] M [address] ---- <[place] [address] NOTE> [phone] Culture,Urine,Voide 05/30/2009 [facility] Source URINE-CC d [address] [place] [address] [phone] Preliminary Report (SEE NOTE) 42 Interim Report DNR Final Report DNR Organism #1 (SEE NOTE) 43 Organism #2 DNR Organism #3 DNR Organism #4 DNR 4399 DNR Sensitivities Org 05/30/2009 [facility] Amoxicillin/Clavulanate <=8/[address] [place] [address] [phone] Ampicillin <=8 S Ampicillin/Sulbact <=8/4 S Aztreonam <=8 S Cefazolin <=8 S Cefepime <=8 S Cefotaxime <=2 S Ceftazidime <=1 S Ceftriaxone <=8 S Cefuroxime <=4 S Cephalothin <=8 S Ciprofloxacin <=1 S Ertapenem <=2 S Gemifloxacin <=0.25 S Gentamicin <=1 S Imipenem <=4 S Levofloxacin <=2 S Nitrofurantoin <=32 S Piperacillin/Tazobactam <=16 S Tetracycline >8 R Ticarcillin/K Clavulanate <=16 S Tobramycin <=2 S Trimethoprim/Sulfa <=2/38 S Throat-Beta 11/27/2008 [facility] Throat-Beta Strep NF [address] [place] [address] [phone] Comp Metabolic 07/02/2008 [facility] Sodium 135 135-[address] mmol/L 5 [place] [address] [phone] Potassium 4.3 mmol/L 3.5-5.0 Chloride 100 mmol/L Low 101-111 Co2 (Carbon Dioxide) 24.0 mmol/L 22-32 Anion Gap 11.0 mmol/L 2-11 45 Glucose 72 mg/dL 70-100 46 BUN 12 mg/dL 6-24 Creatinine 0.8 mg/dL 0.5-1.4 One Over Creatinine 1.25 BUN/Creatinine Ratio 15.0 8-20 Calcium 9.2 mg/dL 8.1-9.9 47 Total Protein 7.7 GM/DL 6.2-8.1 Albumin 4.9 GM/DL 3.6-5.4 Globulin 2.8 GM/DL 2-4 Albumin/Globulin Ratio 1.8 1-3 Bilirubin Total 1.7 mg/dL High 0.4-1.5 Alkaline Phosphatase 76 U/L 30-110 Alt (SGPT) 37 U/L 14-54 Ast (Sgot) 39 U/L 12-42 Laboratory test 08/19/2007 [facility] CBS W/Automated DNR 48, [address] [place] [address] [phone] Liver Function 08/19/2007 [facility] Total Protein 7.3 g/dL 6.3-[address]0 [place] [address] [phone] Albumin 4.1 g/dL 3.5-5.0 Bilirubin,Total 0.3 mg/dL 0.2-1.2 Bilirubin,Direct 0.1 mg/dL 0.1-0.4 Bilirubin,Indirect 0.2 mg/dL 0.0-0.9 Sgot/Ast 14 U/L Low 16-40 SGPT/Alt 36 U/L 30-65 Alkaline Phosphatase 71 U/L 50-136 CBC/Manual 08/19/2007 [facility] White Blood 6.6 K/ uL 3.4-10.[address] [place] [address] [phone] Red Blood Count 4.14 M/uL 3.90-5.20 Hemoglobin 13.5 gm/dL 11.5-15.5 Hematocrit 39.6 % 34.0-46.0 Mean Cell Volume 95.6 fL 80.0-96.0 Mean Corpuscular HGB 32.5 pg 27.0-33.0 Mean Corpuscular HGB Conc 34.0 g/dL 31.7-36.0 Platelet Count 250 K/uL 150-400 Red Cell Distri Width %CV 12.7 % 11.6-15.8 Mean Platelet Volume 6.2 fl Low 6.6-10.6 Total Cells Counted 100 #CELLS Band% 1 % 0-8 Neutrophils% 36 % 33-73 Lymph% 36 % 17-56 Monocyte% 11 % High 0-10 Eosinophil% 15 % High 0-5 Basophil% 1 % 0-2 Platelet Estimate NORMAL RBC Morphology NORMAL Hepatic Function 11/07/2006 [facility] Alkaline 56 U/L 20-125 [address] [place] [address] [phone] Ast 14 U/L 3-35 Alt 12 U/L 3-40 Bilirubin,Total 0.7 mg/dL 0.2-1.3 Bilirubin,Direct 0.1 mg/dL 0.0-0.3 Protein,Total 6.9 g/dL 6.0-8.3 Albumin 4.4 g/dL 3.7-5.1 CBC W/ Diff & PLT 11/07/2006 [facility] WBC 7.9 thous/L 3.8-10.[address] [place] [address] [phone] RBC 3.92 mill/L 3.80-5.10 Hemoglobin 12.7 g/dL 11.7-15.5 Hematocrit 36.5 % 35.0-45.0 MCV 93.2 FL 80.0-100.0 MCH 32.5 pg 27.0-33.0 MCHC 34.8 g/dL 32.0-36.0 RDW 12.7 % 11.0-15.0 Platelet Count 240 thous/L 140-400 Platelet Sufficiency NORMAL Normal Neutrophils,Absolute 4320 cells/L 7852-0573 Bands,Absolute DNR cells/L 0-750 Metamyelocytes,Absolute DNR cells/L 0 Myelocytes,Absolute DNR cells/L 0 Promyelocytes,Absolute DNR cells/L 0 Lymphocytes,Absolute 1940 cells/L 850-3900 Monocytes,Absolute 740 cells/L 200-950 Eosinophils,Absolute 880 cells/L High 15-500 Basophils,Absolute 30 cells/L 0-200 Blast Cells,Absolute DNR cells/L 0 Nucleated RBC,Absolute DNR cells/L 0 Total Neutrophils,% 55 % 38-80 Bands,% DNR % 0-10 Metamyelocytes,% DNR % Myelocytes,% DNR % Promyelocytes,% DNR % Total Lymphocytes,% 25 % 15-49 Monocytes,% 9 % 0-13 Eosinophils,% 11 % 0-8 Basophils,% 0 % 0-2 Blasts,% DNR % Nucleated RBC DNR /100WBC 0 RBC Morphology NORMAL Anisocytosis DNR Poikilocytosis DNR Microcytosis DNR Macrocytosis DNR Polychromasia DNR Hypochromasia DNR Target Cells DNR Basophilic Stippling DNR Comment DNR TSH & T4,Free 11/07/2006 [facility] TSH 2.03 mU/L 0.40-5.[address] [place] [address] [phone] T4,Free 1.0 ng/dL 0.8-1.8 Culture Urine 10/26/2006 [facility] Urine Culture NG [address] [place] [address] [phone] FSH & LH 12/14/2005 [facility] FSH 8.2 MIU/ML [address] [place] [address] [phone] LH 42.5 MIU/ML 54 Lipid Panel 12/14/2005 [facility] Cholesterol 188 mg/dL <[address] [place] [address] [phone] HDL Cholesterol 72 mg/dL >40 55 Triglycerides 64 mg/dL <150 Cholesterol/HDL Ratio 2.6 <4.4 LDL Chol,Calculated 103 mg/dL <130 56 Comp Metabolic Panel 12/14/2005 [facility] Sodium 140 mmol/L 135-146 6 [place] [address] [phone] Potassium 4.2 mmol/L 3.5-5.3 Chloride 107 mmol/L 98-110 Carbon Dioxide 27 mmol/L 21-33 Calcium 9.3 mg/dL 8.5-10.4 Alkaline Phosphatase 54 U/L 20-125 Ast 18 U/L 3-35 Alt 16 U/L 3-40 Bilirubin,Total 0.4 mg/dL 0.2-1.3 Glucose 85 mg/dL 65-99 57 Urea Nitrogen 11 mg/dL 7-25 Creatinine 0.6 mg/dL 0.5-1.2 BUN/Creatinine Ratio 16.8 6-25 Protein,Total 6.9 g/dL 6.0-8.3 Albumin 4.2 g/dL 3.7-5.1 Globulin,Calculated 2.7 g/dL 2.2-4.2 A/G Ratio 1.5 0.8-2.0 GFR Estimated >60 ML/MIN/1.7 >59 58 TSH & T4,Free 12/14/2005 [facility] TSH 2.69 mU/L 0.40-5.50 59 [address] [place] [address] [phone] T4,Free 1.0 ng/dL 0.8-1.8 CBC W/ Diff & PLT 12/14/2005 [facility] WBC 6.9 thous/L 3.8-10.8 [address] [place] [address] [phone] RBC 4.04 mill/L 3.80-5.10 Hemoglobin 13.0 g/dL 11.7-15.5 Hematocrit 37.5 % 35.0-45.0 MCV 92.9 FL 80.0-100.0 MCH 32.2 pg 27.0-33.0 MCHC 34.6 g/dL 32.0-36.0 RDW 12.6 % 11.0-15.0 Platelet Count 264 thous/L 140-400 Platelet Sufficiency NORMAL Neutrophils,Absolute 4230 cells/L 5415-7309 Bands,Absolute DNR cells/L 0-750 Metamyelocytes,Absolute DNR cells/L 0 Myelocytes,Absolute DNR cells/L 0 Promyelocytes,Absolute DNR cells/L 0 Lymphocytes,Absolute 1640 cells/L 850-3900 Monocytes,Absolute 490 cells/L 200-950 Eosinophils,Absolute 560 cells/L High 15-500 Basophils,Absolute 30 cells/L 0-200 Blast Cells,Absolute DNR cells/L 0 Nucleated RBC,Absolute DNR cells/L 0 Total Neutrophils,% 61 % 38-80 Bands,% DNR % 0-10 Metamyelocytes,% DNR % Myelocytes,% DNR % Promyelocytes,% DNR % Total Lymphocytes,% 24 % 15-49 Monocytes,% 7 % 0-13 Eosinophils,% 8 % 0-8 Basophils,% 0 % 0-2 Blasts,% DNR % Nucleated RBC DNR /100WBC 0 RBC Morphology NORMAL Anisocytosis DNR Poikilocytosis DNR Microcytosis DNR Macrocytosis DNR Polychromasia DNR Hypochromasia DNR Target Cells DNR Basophilic Stippling DNR Comment DNR 1 Histopathologist: [id number] Test Disclaimer: Positive bacteria, red blood cells, white blood cells, early , low specific gravity, and other factors may cause false positive or negative results. It is recommended to retest unexpected results within 24 to 72 hours with a serum test when applicable. If is still suspected, please repeat test after 48 to 72 hours. 2 Histopathologist: [id number] REFERENCE RANGE FEMALE MIU/ML FOLLICULAR 2.5 - 10.2 MID-CYCLE PEAK 3.1 - 17.7 LUTEAL 1.5 - 9.1 POSTMENOPAUSAL 23.0 - 116.3 MALE 1.6 - 8.0 FSH REFERENCE RANGES ESTABLISHED ON POST-PUBERTAL PATIENT POPULATION. REFERENCE RANGE NOT ESTABLISHED FOR PRE-PUBERTAL PATIENTS USING THIS ASSAY. FOR PRE-PUBERTAL PATIENTS, [facility] F[facility],PEDIATRIC ASSAY IS RECOMMENDED (ORDER CODE 86672M). 4 REFERENCE RANGE FEMALE MIU/ML FOLLICULAR 1.9 - 12.5 MID-CYCLE PEAK 8.7 - 76.3 LUTEAL 0.5 - 16.9 POSTMENOPAUSAL 10.0 - 54.7 MALE 18 - 59 YRS 1.5 - 9.3 GREATER THAN OR EQUAL TO 60 YRS 1.6 - 15.2 5 REFERENCE RANGE: (ADULT) NG/ML FEMALE: FOLLICULAR PHASE <1.0 LUTEAL PHASE 2.6 - 21.5 POST-MENOPAUSAL <0.5 FIRST TRIMESTER 4.1 - 34.0 SECOND TRIMESTER 24.0 - 76.0 THIRD TRIMESTER 52.0 - 302.0 MALE: <1.4 6 REFERENCE RANGE: FEMALE: NG/ML NON- 3.0 - 30.0 POSTMENOPAUSAL 2.0 - 20.0 10.0 - 209.0 MALE: 2.0 - 18.0 7 Histopathologist: [id number] If is still suspected, please repeat test after 48 to 72 hours. 8 [id number] SEE RESULT BELOW Name: CHRISTINA MEDEROS : [address]: Jovanni Raya MD Acct: [id number] Unit: [id number] AGE: 37 Location: [facility] Re09/08/18 SEX: F Status: DEP ER SPEC: [id number] MARILOU: 09/08/18 [facility] DR: Jovanni Raya MD REQ: [id number] RECD: 09/08/183753 STATUS: HOLLAND BETTS DR: Denisa Henry MD _ SOURCE: URINE SPDESC: ORDERED: Urine Culture COMMENTS: [id number] Procedure Result Reported Site Urine Culture Final 09/10/18- 0847 ML Organism 1 ESCHERICHIA COLI [place] Count >100,000 (Many) CFU/ML 1. ESCHERICHIA COLI M.I.C. RX --------- ------ Ampicillin <=2 S Cefazolin <=4 S Cefepime <=1 S Ceftriaxone <=1 S Ciprofloxacin <=0.25 S Gentamicin <=1 S Levofloxacin <=0.12 S Meropenem <=0.25 S Nitrofurantoin <=16 S Tetracycline <=1 S Pipercillin/Tazobactam <=4 S Trimethoprim/Sulfamethoxazole <=20 S Amoxicillin/Clavulanic Acid <=2 S Aztreonam <=1 S Contact the Microbiology Department for any additional antibiotic reporting. * ML - Main Lab . END OF REPORT DEPARTMENT OF PATHOLOGY, [address] [place] [address] Dax Devries M.D. Director [facility] # [id number] 11 It is recognized that currently available assays for the detection of antibodies to HIV-1 and/or HIV-2 may not detect all infected individuals. HIV antibodies may be undetectable in some stages of the infection and in some clinical conditions. The performance of this assay has not been established for populations of infants or children. Assayed by Chemiluminescence Microparticle Immunoassay on the Siemens Advia Centaur CP. Values obtained with different methods or kits cannot be used interchangeably.The diagnostic specificity of the ADVIA Centaur 1/O/2 Enhanced assay in the low risk population was 99.90% (6052/6058) with a 95% confidence interval of 99.78 to 99.96%. 12 [id number] 13 SEE RESULT BELOW Name: CHRISTINA MEDEROS : [address]: Jovanni Raya MD Acct: [id number] Unit: [id number] AGE: 37 Location: [facility] Re06/23/18 SEX: F Status: DEP ER SPEC: [id number] MARILOU: 06/23/18-1324 [facility] DR: Maxine NAVARRO REQ: [id number] RECD: 06/23/18 STATUS: HOLLAND BETTS DR: Denisa Raya MD _ SOURCE: URINE SPDESC: ORDERED: Urine Culture COMMENTS: [id number] Procedure Result Reported Site Urine Culture Final 06/25/18- 1249 ML No growth of clinically significant organisms * ML - Main Lab . END OF REPORT DEPARTMENT OF PATHOLOGY, [address] [place] [address] Dax Devries M.D. Director [facility] # [id number] 14 Z11.3 15 Performed at: - [facility] [id number] Belt Cutter: Briseyda Mcelroy MD, Phone: [phone] Performed at: - [facility] [address] [id number] Belt Cutter: Crescencio Samuel MD, Phone: [phone] 16 INFCE Result Units: s/co ratio Negative: < 0.8 Indeterminate: 0.8 - 0.9 Positive: > 0.9 The CDC recommends that a positive HCV antibody result be followed up with a HCV Nucleic Acid Amplification test (560509). 17 REFERENCE RANGES BELOW ARE APPLICABLE TO FEMALES FIRST TRIMESTER - 0.26 - 2.66 mIU/L SECOND TRIMESTER - 0.55 - 2.73 mIU/L THIRD TRIMESTER - 0.43 - 2.91 mIU/L 18 Relative blood cell counts (%) should be compared with absolute cell counts (cells/mcL). Relative counts may not be clinically meaningful if the absolute count of one or more cell type is decreased. Reference ranges for relative cell counts derived from: A Manual of Laboratory and Diagnostics Tests, 9th Ed, Juliano Obed & Jimenez, 2015. Pediatric Reference Intervals, 7th Ed, [employer], 2011. 19 VERIFIED BY REPEAT ANALYSIS. 20 LDL-C is now calculated using the Fareed-Felix calculation, which is a validated novel method providing better accuracy than the Friedewald equation in the estimation of LDL-C. Fareed SS et al.SHI.2013;310(19):4907-1688 (http://BlooBox.S B E/faq/MUL799) Desirable range <100 mg/dL for patients with CHD or Diabetes and <70 mg/dL for Diabetic patients with known heart disease 21 For patients with diabetes plus 1 major ASCVD risk factor, treating to a non-HDL-C goal of <100 mg/dL (LDL-C of <70 mg/ dL) is considered a therapeutic option. 22 GLUCOSE REFERENCE RANGE BASED ON FASTING SPECIMEN. 23 HCG REFERENCE VALUES MALES & NON- FEMALES: NEGATIVE FEMALES: POSITIVE INDETERMINATE RESULTS SHOULD BE REPEATED IN 2 TO 4 DAYS IF CLINICALLY INDICATED. 24 FASTING 25 GLUCOSE REFERENCE RANGE BASED ON FASTING SPECIMEN. 26 NORMAL >5.4 NG/ML BORDERLINE 3.4-5.4 NG/ML LOW <3.4 NG/ML 27 Relative blood cell counts (%) should be compared with absolute cell counts (cells/mcL). Relative counts may not be clinically meaningful if the absolute count of one or more cell type is decreased. Reference ranges for relative cell counts derived from: A Manual of Laboratory and Diagnostics Tests, 9th Ed, Juliano Obed & Jimenez, 2015. Pediatric Reference Intervals, 7th Ed, [employer], 2011. 28 VERIFIED BY REPEAT ANALYSIS. 29 LDL-CHOLESTEROL RISK CATEGORY* GOAL VERY HIGH (E.G. DIABETES + CVD) <70 MG/DL HIGH (DIABETICS; CHD RISK EQUIVALENTS) <100 MG/DL MODERATELY HIGH (MULTIPLE(2+) RISK FACTORS) <130 MG/DL 0 TO 1 RISK FACTORS <160 MG/DL * NCEP REPORT. CIRCULATION 2004; 110: 227-239 30 Target for non-HDL cholesterol is 30 mg/dL higher than LDL cholesterol target. 31 REFERENCE RANGES BELOW ARE APPLICABLE TO FEMALES FIRST TRIMESTER - 0.26 - 2.66 mIU/L SECOND TRIMESTER - 0.55 - 2.73 mIU/L THIRD TRIMESTER - 0.43 - 2.91 mIU/L 32 Histopathologist: [id number] ALEXUS MONTES DE OCA 33 Note: Persistent reduction for 3 months or more in an eGFR <60 mL/min/1.73 m2 defines CKD. Patients with eGFR values >/=60 mL/min/1.73 m2 may also have CKD if evidence of persistent proteinuria is present. The original MDRD equation for estimated GFR is not valid for patients less than 18 years of age. Additional information may be found at www.kdoqi.org. 34 GLUCOSE REFERENCE RANGE BASED ON FASTING SPECIMEN. 35 VERIFIED BY REPEAT ANALYSIS. 36 LDL-CHOLESTEROL RISK CATEGORY* GOAL VERY HIGH (E.G. DIABETES + CVD) <70 MG/DL HIGH (DIABETICS; CHD RISK EQUIVALENTS) <100 MG/DL MODERATELY HIGH (MULTIPLE(2+) RISK FACTORS) <130 MG/DL 0 TO 1 RISK FACTORS <160 MG/DL * NCEP REPORT. CIRCULATION 2004; 110: 227-239 37 Target for non-HDL cholesterol is 30 mg/dL higher than LDL cholesterol target. 38 REFERENCE RANGES BELOW ARE APPLICABLE TO FEMALES FIRST TRIMESTER - 0.26 - 2.66 mIU/L SECOND TRIMESTER - 0.55 - 2.73 mIU/L THIRD TRIMESTER - 0.43 - 2.91 mIU/L 39 RUN DATE: 09/17/12 [facility] LAB LIVE PAGE 1 RUN TIME: [address] [place] [address] Specimen Inquiry Name: CHRISTINA MEDEROS : [address]: Mehnaz Lam MD Acct: [id number] Unit: [id number] AGE: 31 Location: [facility] Re09/15/12 SEX: F Status: DEP ER SPEC: [id number] MARILOU: 09/15/12-1252 [facility] DR: Mehnaz Lam MD REQ: [id number] RECD: 09/15/12 STATUS: HOLLAND BETTS DR: Denisa Henry MD _ SOURCE: THROAT SPDESC: ORDERED: Throat Beta Str Procedure Result Verified Site Throat Beta Strep Culture Final 09/17/12- 728 ML Negative For Group A Beta Streptococcus END OF REPORT * ML=Testing performed at Main Lab DEPARTMENT OF PATHOLOGY, [address] [place] [address] Dax Devries M.D. [facility] Permit #[id number] RUN DATE: 07/05/12 [facility] NMI LIVE PAGE 1 RUN TIME: 928 Specimen Inquiry RUN USER: INTERFACE Name: CHRISTINA MEDEROS Status: SHANTHI CLI Re07/03/12 Age/Sex: 31/F Unit#: [id number] [place] [facility] [place] [birth year] SPEC #: [id number] MARILOU: 07/03/12 STATUS: HOLLAND REQ #: [id number] RECD: 07/03/[address]: Sabino MENSAH,Nic Umaña SOURCE: URINE ENTR: 07/03/12 [facility] DR: Denisa Henry MD SPDC: ORDERED: URINE C S QUERIES: SPECIMEN DESCRIPTION: URINE, CLEAN CATCH Procedure Result Verified Site > URINE CULTURE SENSITIVI Final 07/05/12- 928 ML Organism 1 ESCHERICHIA COLI COLONY COUNT 50-75,000 ORGANISMS/ML (MANY) 1. ESCHERICHIA COLI RX M.I.C. ------ --------- AMIKACIN S <=2 LEVOFLOXACIN S <=0.12 AMPICILLIN R >=32 CEFAZOLIN S <=4 CEFTRIAXONE S <=1 CIPROFLOXACIN S <=0.25 GENTAMICIN S <=1 TIGECYCLINE S <=0.5 CEFTAZIDIME S <=1 IMIPENEM S <=1 NITROFURANTOIN S <=16 TRIMETH-SULFA S <=20 *These antibiotics are not available in the [facility] Formulary. Contact the Microbiology Department for any additional antibiotic reporting. [facility] Permit #[id number] [address] [place] [address] DEPARTMENT OF PATHOLOGY, [address] [place] [address] [facility] Permit #[id number] Sander Mathews M.D. Roadmaster 41 RUN DATE: 11/05/11 [facility] NMI LIVE PAGE 1 RUN TIME: 1149 Specimen Inquiry RUN USER: INTERFACE Name: CHRISTINA MEDEROS Status: DEP CLI Re11/02/11 Age/Sex: 31/F Unit#: [id number] [facility] SPEC #: [id number] MARILOU: 11/02/11 STATUS: COMP REQ #: [id number] RECD: 11/03/[address]: Genaro MENSAH,Mehnaz Daniel SOURCE: URINE ENTR: 11/03/[address]: Denisa Henry MD [facility]: ORDERED: URINE C S QUERIES: SPECIMEN DESCRIPTION: URINE, CLEAN CATCH ACT WKST: UR 11/05/11 #1 Procedure Result Verified Site > URINE CULTURE SENSITIVI Final 11/05/11- 1149 ML SCANT NORMAL URETHRAL OR PERINEAL ILEANA - [facility] Permit #[id number] [facility] [employer] [facility] [address] DEPARTMENT OF PATHOLOGY, [address] [place] [address] [facility] Permit #[id number] Sander Mathews M.D. [employer] 42 GRAM NEGATIVE BACILLI GREATER THAN 100,000 CFU/ML IDENTIFICATION AND SUSCEPTIBILITIES TO FOLLOW. 43 ESCHERICHIA COLI GREATER THAN 100,000 CFU/ML 44 NEGATIVE FOR GROUP A BETA STREPTOCOCCUS 45 Anion gap measurement may be of limited value in the presence of any alkalosis, especially in a combined acid base disorder. . 46 Note change in reference range as of 06/13/08. The change was based on recommendations from the [place] [employer]. 47 Please note change in reference range effective 08 . 48 Specimen: [id number] - TEST: LFT EXTRA SST TUBE DRAWN IN CASE OTHER ORDERS CALLED IN BY MD TEST: LFT QUERY: LIVER=TBILI,DBILI,IBILI,SGOT,SGPT,ALK PHOS,ALBUMIN 49 08/19/07 LAB.PLW DIFF NEEDED 50 FASTING 51 TSH REFERENCE RANGE: FIRST TRIMESTER - 0.30 - 4.50 mU/L SECOND TRIMESTER - 0.50 - 4.60 mU/L THIRD TRIMESTER - 0.80 - 5.20 mU/L 52 FINAL: NO GROWTH DAY 2 (<1,000 CFU/mL) 53 REFERENCE RANGES: FEMALE MIU/ML FOLLICULAR 2.5 - 10.2 MID-CYCLE PEAK 3.1 - 17.7 LUTEAL 1.5 - 9.1 POSTMENOPAUSAL 23.0 - 116.3 MALE 18 - 70 YRS OF AGE 1.6 - 8.0 54 REFERENCE RANGES: FEMALE MIU/ML FOLLICULAR 1.9 - 12.5 MID-CYCLE PEAK 8.7 - 76.3 LUTEAL 0.5 - 16.9 POSTMENOPAUSAL 5.0 - 52.3 MALE 18 - 70 YRS OF AGE 1.5 - 9.3 REFERENCE RANGES ARE NOT AVAILABLE FOR MALES GREATER THAN 70 YEARS OF AGE. 55 HDL REFERENCE RANGES ADULTS (20 YEARS & OLDER) DESIRABLE: > OR=60 MG/DL HIGHER RISK: <40 MG/DL 56 LDL-CHOLESTEROL RISK CATEGORY* GOAL VERY HIGH (E.G. DIABETES + CVD) <70 MG/DL HIGH (DIABETICS; CHD RISK EQUIVALENTS) <100 MG/DL MODERATELY HIGH (MULTIPLE(2+) RISK FACTORS) <130 MG/DL 0 TO 1 RISK FACTORS <160 MG/DL * NCEP REPORT. CIRCULATION 2004; 110: 227-239 57 GLUCOSE REFERENCE RANGE BASED ON FASTING SPECIMEN. 58 THE GFR ESTIMATE IS NOT ADJUSTED FOR RACE, IF THE PATIENT'S RACE IS -[place]IZ[place] OF [place], THE GFR ESTIMATE MUST BE MULTIPLIED BY A FACTOR OF 1.21. 59 TSH REFERENCE RANGE: FIRST TRIMESTER - 0.30 - 4.50 mU/L SECOND TRIMESTER - 0.50 - 4.60 mU/L THIRD TRIMESTER - 0.80 - 5.20 mU/L Procedures Date Code Description Status 10/07/2014 91701 Non-Invcorrotid/Comp /Bilat Study Completed 05/08/2014 59332 Ear Lavage Completed Encounters Type Date Location Provider Dx Diagnosis Office Visit 02/07/2019 Main Office Denisa Henry M.D. F41.1 Generalized anxiety 11:00a disorder N97.9 Female infertility, unspecified Office Visit 12/04/2018 3:30p Main Office Artie Jacobs1.1 Generalized anxiety M.DMorales disorder K21.9 Gastro-esophageal reflux disease without esophagitis Office Visit 10/10/2018 1:30p Main Office Artie Jacobs1.1 Generalized anxiety M.D. disorder Office Visit 08/15/2018 3:00p Main Office Denisa Gauss, F41.1 Generalized anxiety M.D. disorder Office Visit 07/12/2018 3:30p Main Office Denisa Henry, F41.1 Generalized anxiety M.D. disorder N76.0 Acute vaginitis M26.601 Right temporomandibular joint disorder, unspecified Office Visit 05/18/2018 10:00a Main Office Denisa Henry, F41.1 Generalized anxiety M.D. disorder S91.312A Laceration without foreign body, left foot, init encntr Office Visit 03/15/2018 2:45p Main Office Denisa Henry F41.1 Generalized anxiety M.D. disorder Office Visit 01/12/2018 3:00p Main Office Denisa Henry F41.1 Generalized anxiety M.D. disorder Office Visit 11/21/2017 3:00p Main Office Denisa Henry F41.1 Generalized anxiety M.D. disorder Office Visit 09/26/2017 3:30p Main Office Denisa Henry, N76.0 Acute vaginitis M.D. J06.9 Acute upper respiratory infection, unspecified F41.1 Generalized anxiety disorder Office Visit 07/27/2017 3:30p Main Office Denisa Henry F41.1 Generalized anxiety M.D. disorder K21.9 Gastro-esophageal reflux disease without esophagitis J30.1 Allergic rhinitis due to pollen Office Visit 05/23/2017 10:00a Main Office Denisa Henry F41.1 Generalized anxiety M.D. disorder Office Visit 03/09/2017 10:00a Main Office Denisa Henry F41.1 Generalized anxiety M.D. disorder Office Visit 12/23/2016 10:15a Main Office Denisa Henry F41.1 Generalized anxiety M.D. disorder Office Visit 10/12/2016 3:15p Main Office Artie Jacobs1.1 Generalized anxiety M.D. disorder J02.9 Acute pharyngitis, unspecified Office Visit 08/16/2016 3:15p Main Office Denisa Henry R63.5 Abnormal weight gain M.D. Office Visit 06/08/2016 2:00p Main Office Denisa Henry F41.1 Generalized anxiety M.D. disorder Office Visit 03/24/2016 3:30p Main Office Denisa Henry, J02.9 Acute pharyngitis, M.D. unspecified F41.1 Generalized anxiety disorder Office Visit 11/11/2015 3:30p Main Office Denisa Henry F41.1 Generalized anxiety M.D. disorder Office Visit 10/22/2015 11:45a Main Office Sissy Helms MD F41.1 Generalized anxiety disorder Office Visit 07/31/2015 12:00p Main Office Denisa Henry, F41.1 Generalized anxiety M.D. disorder Office Visit 07/09/2015 3:15p Main Office Denisa Henry, 780.79 Malaise And Fatigue M.D. Other Office Visit 05/01/2015 11:45a Main Office Denisa Henry 300.02 Anxiety Disorder M.D. Generalized 850.0 Concussion W/ No Loss Of Consciousness 802.0 FX Nasal Bones Closed Office Visit 02/04/2015 3:30p Main Office Denisa Henry 300.02 Anxiety Disorder M.D. Generalized Office Visit 10/21/2014 10:15a Main Office Denisa Henry, 389.9 Hearing Loss Unspec M.D. 300.02 Anxiety Disorder Generalized Office Visit 10/01/2014 3:15p Main Office Denisa Henry, 386.31 Labyrinthitis Serous M.D. Office Visit 05/30/2014 1:45p Main Office Denisa Henry, 386.31 Labyrinthitis Serous M.D. Office Visit 03/11/2014 3:15p Main Office Denisa Henry, 300.02 Anxiety Disorder M.D. Generalized Office Visit 12/25/2013 3:30p Main Office Denisa Henry 300.02 Anxiety Disorder M.D. Generalized 272.4 Hyperlipidemia Other Unspec Office Visit 11/27/2013 3:30p Main Office Denisa Henry 300.02 Anxiety Disorder M.D. Generalized 780.79 Malaise And Fatigue Other 382.90 Otitis Media Office Visit 08/08/2013 3:00p Main Office Denisa Henry 300.02 Anxiety Disorder M.D. Generalized Office Visit 04/17/2013 11:45a Main Office Denisa Henry 300.02 Anxiety Disorder M.D. Generalized Office Visit 08/07/2012 3:30p Main Office Denisa Henry, 536.3 Gastroparesis M.D. Office Visit 07/26/2012 10:00a Main Office Denisa Henry, 530.81 Esophageal Reflux M.D. 536.3 Gastroparesis Office Visit 07/18/2012 10:30a Main Office Denisa Henry, 300.02 Anxiety Disorder M.D. Generalized 564.10 Irritable Bowel Syndrome Office Visit 04/03/2012 3:15p Main Office Denisa Henry, 300.02 Anxiety Disorder M.D. Generalized 784.0 Headache Office Visit 12/21/2011 3:30p Main Office Denisa Henry M.D. 382.90 Otitis Media 477.90 Allergies 300.02 Anxiety Disorder Generalized Office Visit 03/02/2011 11:45a Main Office Denisa Henry M.D. 382.90 Otitis Media 477.90 Allergies 300.02 Anxiety Disorder Generalized Office Visit 12/07/2010 3:30p Main Office Denisa Henry, 386.35 Labyrinthitis Viral M.D. 460.00 Upper Respiratory Infection Office Visit 09/21/2010 3:30p Main Office Denisa Henry, 486.00 Pneumonia, Organis M.D. 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 Office Visit 10/28/2009 2:45p Main Office Denisa Henry, 372.01 Conjunctivitis Serous M.D. Except Viral 473.8 Sinusitis Chronic Other Office Visit 09/08/2009 3:30p Main Office Denisa Henry, 300.02 Anxiety Disorder M.D. Generalized V04.81 Need For Prophylactic Vaccination & Inoculation/Influenza Office Visit 06/20/2009 10:00a Main Office Sissy Helms MD 599.0 UTI Urinary Tract Infection Site Not Spec 300.02 Anxiety Disorder Generalized 305.1 Tobacco Use Disorder GENERAL General Office Visit 05/30/2009 11:50a Main Office Sissy Helms MD 599.70 Hematuria 599.0 UTI Urinary Tract Infection Site Not Spec GENERAL General Office Visit 10/14/2008 3:15p Main Office Denisa Henry, 300.02 Anxiety Disorder M.D. Generalized Office Visit 08/26/2008 3:30p Main Office Denisa Henry 300.02 Anxiety Disorder M.D. Generalized 780.52 Insomnia Unspecified Office Visit 07/08/2008 3:30p Main Office Denisa Henry, 300.02 Anxiety Disorder M.D. Generalized Office Visit 04/08/2008 3:30p Main Office Denisa Henry, 310.2 Postconcussion M.D. Syndrome Office Visit 01/16/2008 3:30p Main Office Denisa Henry 300.02 Anxiety Disorder M.D. Generalized Office Visit 12/19/2007 3:30p Main Office Denisa Henry 300.02 Anxiety Disorder M.D. Generalized 784.0 Headache Office Visit 12/13/2007 2:00p Main Office Sissy Helms MD 784.0 Headache 300.02 Anxiety Disorder Generalized GENERAL General Office Visit 08/23/2007 3:30p Main Office Denisa Henry M.D. 530.81 Esophageal Reflux Office Visit 08/14/2007 3:30p Main Office Denisa Henry M.D. 530.81 Esophageal Reflux 386.31 Labyrinthitis Serous 780.79 Malaise And Fatigue Other Office Visit 11/15/2006 3:30p Main Office Denisa Henry M.D. 530.81 Esophageal Reflux 477.0 Rhinitis Allergic Due To Pollen Office Visit 10/31/2006 3:15p Main Office Denisa Henry, 599.00 UTI / Urosepsis Mikie.D. Infection 530.81 Esophageal Reflux 460.00 Upper Respiratory Infection Office Visit 12/28/2005 3:30p Main Office Denisa Henry M.D. 848.9 Sprains & Strains Unspec Site 627.0 Premenopausal Menorrhagia Office Visit 12/06/2005 1:30p Main Office Denisa Henry M.D. 461.9 Sinusitis Acute Unspec 627.0 Premenopausal Menorrhagia Plan of Treatment 04/11/2019 - Denisa Henry M.D.F41.1 Generalized anxiety disorderComments:meds refilled, discussed any alternatives to xanax including meditation, she has tried antidepressants in past and found them not helpful she has reduced her frequency of intake over the past 3 months contract [id number] Allergic rhinitis due to pollenComments:has asthmatic component
--- OUTSIDE RECORDS SUMMARY | 2019-04-20 13:31 | XMS REPORT | Continuity of Care Document ---
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 12/21/2011 Tablets Saline Nasal [place] 1 o2 sprays q 4Oz 477.90 Denisa Henry, 03/02/2011 - nostril q 4 hours M.D. 12/21/2011 0.65% Solution prn Meclizine HCL 1-2 tabs po tid prn 30tabs 386.35 Denisa Henry, 12/07/2010 - 12.5mg M.D. 12/21/2011 Tablets Work Note the above february 486.00 Denisa Henry, 09/21/2010 - return to [...] Diflucan 1 by mouth every 3tabs Denisa Henry 05/30/2009 - 150mg Tablets day for 3 [...] CPT Code Status Date Vaccine Lot # 87485 Given 03/20/2010 Tetanus Shot [id number] Given 03/24/1998 DT Immunization DIP/Tet (History Only) [...] Result H/L Range Note Laboratory test 03/18/2019 [facility] Poc , Negative Negative [address] [place] [address] [phone] Laboratory test 03/18/2019 [facility] Rapid Strep Negative Negative [address] [place] [address] [phone] FSH & LH 02/07/2019 [facility] FSH 5.5 MIU/ML [address] [place] [address] [phone] LH 5.1 MIU/ML 4 Laboratory test finding 02/07/2019 [facility] Progesterone 2.7 NG/ML [address] [place] [address] [phone] Prolactin 12.5 NG/ML 6 Laboratory test 09/08/2018 [facility] Negative Negative [address] , [place] [address] Urine [phone] Urine Culture 09/08/2018 [facility] Urine Culture SEE RESULT 8, And [address] BELOW 9 [place] [address] [phone] Laboratory test 06/23/2018 [facility] HIV 1&2 AB Nonreactive Nonreactive 10, finding [address] Self Referred [address] [place] [address] [phone] GC/Chlamydia 06/23/2018 [facility] Chlamydia Negative Negative 12 Amplified Rna [address] trachomatis [place] [address] Rna [phone] Neisseria gonorrhoeae (GC) Rna Negative Negative Urine Culture And 06/23/2018 [facility] Urine SEE RESULT [address] [place] [address] [phone] Laboratory test 11/24/2017 [facility] Treponema Negative Negative 14, finding [address] Antibody 15 [place] [address] [place] [phone] Hepatitis 11/24/2017 [facility] Hepatitis A Negative Negative Evaluation [address] Antibody IgM [place] [id number] [phone] HBsAg Screen [Ref Lab] Negative Negative Hepatitis B Core IgM Negative Negative HCV Signal/Cutoff ratio 0.1 s/corat 0.0-0.9 16 Laboratory test 09/29/2017 [facility] T4,Free,Calculated 2.17 1.4-3.[address] [place] [address] [phone] Thyroid Panel + 09/29/2017 [facility] T4,Total 7.1 4.5-12.[address] g/[place] [address] [phone] T3 Uptake 30.5 % 22.0-35.0 TSH 2.07 mIU/L 0.40-4.50 17 CBC W/ Diff & PLT 09/29/2017 [facility] WBC 5.5 thous/L 3.8-10.[address] [place] [address] [phone] RBC 4.07 mill/L 3.80-5.10 Hemoglobin 11.6 g/dL Low 11.7-15.5 Hematocrit 36.2 % 35.0-45.0 MCV 89.0 FL 80.0-100.0 MCH 28.4 pg 27.0-33.0 MCHC 31.9 g/dL Low 32.0-36.0 RDW 17.0 % High 11.0-15.0 Platelet Count 256 thous/L 140-400 Platelet Sufficiency PENDING MPV 8.5 FL 7.5-12.5 Neutrophils,Absolute 3620 cells/L 2138-7224 Bands,Absolute PENDING Metamyelocytes,Absolute PENDING Myelocytes,Absolute PENDING Promyelocytes,Absolute [...] High <199 Reflex To Direct LDL [address] [place], [place] [address] [phone] HDL Cholesterol 122 mg/dL >50 19 Cholesterol/HDL Ratio 1.8 CALC <5.0 LDL Chol,Calculated 88 mg/dL 0-100 20 Triglycerides 67 mg/dL <150 Non-HDL Cholesterol 103 mg/dL <130 21 Basic Metab W/O CA 09/29/2017 [facility] Sodium 136 mmol/L 135-146 [address] [place], [place] [address] [phone] Potassium 4.3 mmol/L 3.5-5.3 Chloride 102 mmol/L 98-110 Carbon Dioxide 23 mmol/L 20-31 Glucose 97 mg/dL 65-99 22 Urea Nitrogen (BUN) 14 mg/dL 7-25 Creatinine 0.66 mg/dL 0.50-1.10 BUN/Creatinine Ratio 21.7 6-22 Laboratory test 09/29/2017 [facility] HCG,Total,QL NEGATIVE Negative [address] [place], [place] [address] [phone] Basic Metabolic 08/13/2016 [facility] Sodium 139 mmol/L 135-146 [address] [place] [address] [phone] Potassium 4.2 mmol/L 3.5-5.3 Chloride 105 mmol/L 98-110 Carbon Dioxide 25 mmol/L 20-31 Calcium 9.5 mg/dL 8.6-10.2 Glucose 85 mg/dL 65-99 25 Urea Nitrogen 12 mg/dL 7-25 Creatinine 0.63 mg/dL 0.50-1.10 BUN/Creatinine Ratio 19.4 6-22 Egfr Non-Afr. Italian 115 ML/MIN/1.73M2 > Or=60 Egfr 134 ML/MIN/1.73M2 > Or=60 Iron,Tibc,Fol,B12,Harvey 08/13/2016 [facility] Iron,Total 78 g/dL 40-[address] [place] [address] [phone] Tibc 454 g/dL High 250-450 % Saturation 17 % 11-50 Ferritin 9 NG/ML Low 10-154 Folate,Serum 16.5 NG/ML 26 Vitamin B12,Serum 464 pg/mL 200-1100 CBC W/ Diff & PLT 08/13/2016 [facility] WBC 5.1 thous/L 3.8-10.[address] [place] [address] [phone] RBC 3.88 mill/L 3.80-5.10 Hemoglobin 11.4 g/dL Low 11.7-15.5 Hematocrit 35.0 % 35.0-45.0 MCV 90.4 FL 80.0-100.0 MCH 29.4 pg 27.0-33.0 MCHC 32.6 g/dL 32.0-36.0 RDW 15.6 % High 11.0-15.0 Platelet Count 270 thous/L 140-400 Platelet Sufficiency PENDING MPV 8.3 FL 7.5-11.5 Neutrophils,Absolute 2480 cells/L [phone] Bands,Absolute PENDING Metamyelocytes,Absolute PENDING Myelocytes,Absolute PENDING Promyelocytes,Absolute [...] Lab Cholesterol 251 mg/dL High 125-[address] [place] [address] [phone] HDL Cholesterol 121 mg/dL > Or=46 28 Cholesterol/HDL Ratio 2.1 < Or=5.0 LDL Chol,Calculated 120 mg/dL <130 29 Triglycerides 50 mg/dL <150 Non-HDL Cholesterol 130 mg/dL 30 TSH & T4,Free 08/13/2016 [facility] TSH 1.86 mIU/L 0.40-4.[address] [place] [address] [phone] T4,Free 0.9 ng/dL 0.8-1.8 Rapid Influenza 01/15/2016 [facility] [employer] Influenza A NEGATIVE N Negative 32 A & B Molecular [address] [place] [address] [phone] Influenza B Molecular NEGATIVE N Negative Laboratory test 07/18/2015 [facility] Harmon Screen NEGATIVE Negative finding [address] (Heterophile) [place] [address] [phone] CBS W/Automated 07/11/2015 [facility] White Blood Count 4.3 K/uL 3.1-10.[address] [place] [address] [phone] Red Blood Count 3.98 M/uL 3.90-5.40 Hemoglobin [...] % 40.4-72.8 Lymph % 37.2 % 17.0-46.1 Harmon % 13.6 % High 4.3-13.2 Eo% 7.3 % High 0.0-6.6 Bas% 0.7 % 0.0-1.1 Neut# 1.75 K/uL 1.0-7.0 Lymph # 1.58 K/uL Low 1.8-7.0 Harmon # 0.58 K/uL 0.3-0.9 Eos # 0.31 K/uL 0.0-0.5 Baso # 0.03 K/uL 0.0-0.1 TSH+Free T4 07/11/2015 [facility] Thyroid Stim 1.55 uIU/mL 0.36-3.74 ([place] & [address] Hormone [facility] [place], [place] [address] [phone] Free T4 0.93 ng/dL 0.76-1.46 Basic Metabolic Panel 07/11/2015 [facility] Glucose 85 mg/dL 74-[address] [place], [place] [address] [phone] BUN 13 mg/dL 7-18 Creatinine 0.8 mg/dL 0.6-1.3 Glom Filtration Rate, Estimate >60 mL/min >60 If >60 mL/min >60 33 BUN/Creat 16.2 ratio Sodium 138 mmol/L 136-145 Potassium 4.1 mmol/L 3.5-5.1 Chloride 104 mmol/L 98-107 Carbon Dioxide 27 mmol/L 21-32 Anion Gap 7 mEq/L Low 8-16 Calcium 9.0 mg/dL 8.5-10.1 Basic Metabolic Panel 12/13/2013 [facility] Sodium 138 mmol/L 135-146 [address] [facility] [place] [address] [phone] Potassium 4.1 mmol/L 3.5-5.3 Chloride 104 mmol/L 98-110 Carbon Dioxide 25 mmol/L 19-30 Calcium 9.4 mg/dL 8.6-10.2 Glucose 82 mg/dL 65-99 34 Urea Nitrogen 14 mg/dL 7-25 Creatinine 0.61 mg/dL 0.50-1.10 BUN/Creatinine Ratio 22.5 High 6-22 Egfr Non-Afr. Italian 118 ML/MIN/1.73M2 > Or=60 Egfr 137 ML/MIN/1.73M2 > Or=60 Lipid Panel 12/13/2013 [facility] Cholesterol 228 mg/dL High 125-200 [address] [place] [address] [phone] HDL Cholesterol 119 mg/dL > Or=46 35 Cholesterol/HDL Ratio 1.9 < Or=5.0 LDL Chol,Calculated 96 mg/dL <130 36 Triglycerides 63 mg/dL <150 Non-HDL Cholesterol 109 mg/dL 37 CBC W/ Diff & PLT 12/13/2013 [facility] WBC 7.6 thous/L 3.8-10.8 [address] [place] [address] [phone] RBC 4.08 mill/L 3.80-5.10 Hemoglobin 13.0 g/dL 11.7-15.5 Hematocrit 38.9 % 35.0-45.0 MCV 95.3 FL 80.0-100.0 MCH 31.8 pg 27.0-33.0 MCHC 33.4 g/dL 32.0-36.0 RDW 12.8 % 11.0-15.0 Platelet Count 217 thous/L 140-400 Neutrophils,Absolute 5320 cells/L 5437-6026 Lymphocytes,Absolute 980 cells/L 850-3900 Monocytes,Absolute 730 cells/L 200-950 Eosinophils,Absolute 530 cells/L High 15-500 Basophils,Absolute 30 cells/L 0-200 Total Neutrophils,% 70 % Not Established Total Lymphocytes,% 13 % Not Established Monocytes,% 10 % Not Established Eosinophils,% 7 % Not Established Basophils,% 0 % Not Established Laboratory test finding 12/13/2013 [facility] TSH 1.60 mIU/L 0.40-4.[address] [place] [address] [phone] T4,Free 1.1 ng/dL 0.8-1.8 Throat-Beta Strept 09/15/2012 [facility] Throat Beta (SEE NOTE) [address] [place] [address] [phone] Urine Culture & 07/03/2012 [facility] M [address] ---- <[place] [address] NOTE> [phone] Urine Culture & 11/02/2011 [facility] M [address] ---- <[place] [address] NOTE> [phone] Culture,Urine,Voide 05/30/2009 [facility] Source URINE-CC d [address] [place] [address] [phone] Preliminary Report (SEE NOTE) 42 Interim Report DNR Final Report DNR Organism #1 (SEE NOTE) 43 Organism #2 DNR Organism #3 DNR Organism #4 DNR 4399 DNR Sensitivities Org 05/30/2009 [facility] Amoxicillin/Clavulanate <=8/[address] [place] [address] [phone] Ampicillin <=8 S Ampicillin/Sulbact <=8/4 S Aztreonam [...] <=2 S Trimethoprim/Sulfa <=2/38 S Throat-Beta 11/27/2008 [facility] Throat-Beta Strep NF [address] [place] [address] [phone] Comp Metabolic 07/02/2008 [facility] Sodium 135 135-[address] mmol/L 5 [place] [address] [phone] Potassium 4.3 mmol/L 3.5-5.0 Chloride 100 mmol/L [...] (Sgot) 39 U/L 12-42 Laboratory test 08/19/2007 [facility] CBS W/Automated DNR 48, [address] [place] [address] [phone] Liver Function 08/19/2007 [facility] Total Protein 7.3 g/dL 6.3-[address] .0 [place] [address] [phone] Albumin 4.1 g/dL 3.5-5.0 Bilirubin,Total 0.3 mg/dL 0.2-1.2 Bilirubin,Direct 0.1 mg/dL 0.1-0.4 Bilirubin,Indirect 0.2 mg/dL 0.0-0.9 Sgot/Ast 14 U/L Low 16-40 SGPT/Alt 36 U/L 30-65 Alkaline Phosphatase 71 U/L 50-136 CBC/Manual 08/19/2007 [facility] White Blood 6.6 K/ uL 3.4-10.[address] [place] [address] [phone] Red Blood Count 4.14 M/uL 3.90-5.20 Hemoglobin [...] Alkaline 56 U/L 20-[address] [place] [address] [phone] Ast 14 U/L 3-35 Alt 12 U/L 3-40 Bilirubin,Total 0.7 mg/dL 0.2-1.3 Bilirubin,Direct 0.1 mg/dL 0.0-0.3 Protein,Total 6.9 g/dL 6.0-8.3 Albumin 4.4 g/dL 3.7-5.1 CBC W/ Diff & PLT 11/07/2006 [facility] WBC 7.9 thous/L 3.8-10.[address] [place] [address] [phone] RBC 3.92 mill/L 3.80-5.10 Hemoglobin 12.7 g/dL 11.7-15.5 Hematocrit 36.5 % 35.0-45.0 MCV 93.2 FL 80.0-100.0 MCH 32.5 pg 27.0-33.0 MCHC 34.8 g/dL 32.0-36.0 RDW 12.7 % 11.0-15.0 Platelet Count 240 thous/L 140-400 Platelet Sufficiency NORMAL Normal Neutrophils,Absolute 4320 cells/L 3057-5604 Bands,Absolute DNR cells/L 0-750 Metamyelocytes,Absolute DNR cells/L [...] Lab TSH 2.03 mU/L 0.40-5.[address] [place] [address] [phone] T4,Free 1.0 ng/dL 0.8-1.8 Culture Urine 10/26/2006 [facility] Urine Culture NG [address] Sensit[address] [place], [place] [address] [phone] FSH & LH 12/14/2005 [facility] FSH 8.2 MIU/ML [address] [place] [address] [phone] LH 42.5 MIU/ML 54 Lipid Panel 12/14/2005 [facility] Cholesterol 188 mg/dL <[address] [place] [address] [phone] HDL Cholesterol 72 mg/dL >40 55 Triglycerides 64 mg/dL <150 Cholesterol/HDL Ratio 2.6 <4.4 LDL Chol,Calculated 103 mg/dL <130 56 Comp Metabolic Panel 12/14/2005 [facility] Sodium 140 mmol/L 135-146 6 [place] [address] [phone] Potassium 4.2 mmol/L 3.5-5.3 Chloride 107 mmol/L [...] Lab TSH 2.69 mU/L 0.40-5.50 59 6 [place] [address] [phone] T4,Free 1.0 ng/dL 0.8-1.8 CBC W/ Diff & PLT 12/14/2005 [facility] WBC 6.9 thous/L 3.8-10.8 [address] [place] [address] [phone] RBC 4.04 mill/L 3.80-5.10 Hemoglobin 13.0 g/dL 11.7-15.5 Hematocrit 37.5 % 35.0-45.0 MCV 92.9 FL 80.0-100.0 MCH 32.2 pg 27.0-33.0 MCHC 34.6 g/dL 32.0-36.0 RDW 12.6 % 11.0-15.0 Platelet Count 264 thous/L 140-400 Platelet Sufficiency NORMAL Neutrophils,Absolute 4230 cells/L 2492-1735 Bands,Absolute DNR cells/L 0-750 Metamyelocytes,Absolute DNR cells/L [...] DNR Basophilic Stippling DNR Comment DNR 1 Public Health Staff Nurse: [id number] Test Disclaimer: Positive bacteria, red blood cells, white blood cells, early , low specific gravity, and other factors may cause false positive or negative results. It is recommended to retest unexpected results within 24 to 72 hours with a serum test when applicable. If is still suspected, please repeat test after 48 to 72 hours. 2 Public Health Staff Nurse: [id number] 3 REFERENCE RANGE FEMALE MIU/ML FOLLICULAR 2.5 - 10.2 MID-CYCLE PEAK 3.1 - 17.7 LUTEAL 1.5 - 9.1 POSTMENOPAUSAL 23.0 - 116.3 MALE 1.6 - 8.0 FSH REFERENCE RANGES ESTABLISHED ON POST-PUBERTAL PATIENT POPULATION. REFERENCE RANGE NOT ESTABLISHED FOR PRE-PUBERTAL PATIENTS USING THIS ASSAY. FOR PRE-PUBERTAL PATIENTS, [facility] F[facility]IC ASSAY IS RECOMMENDED (ORDER CODE 10893K). 4 REFERENCE RANGE FEMALE MIU/ML FOLLICULAR 1.9 [...] - 209.0 MALE: 2.0 - 18.0 7 Public Health Staff Nurse: [id number] If is still suspected, please repeat test after 48 to 72 hours. 8 [id number] SEE RESULT BELOW Name: CHRISTINA MEDEROS : [address]: Jovanni Raya MD Acct: [id number] Unit: [id number] AGE: 37 Location: [facility] Re09/08/18 SEX: F Status: DEP ER SPEC: [id number] MARILOU: 09/08/[address] [facility] [address]: Jovanni Raya MD REQ: [id number] RECD: 09/08/18 STATUS: HOLLAND BETTS DR: Denisa Henry MD _ SOURCE: URINE SPDESC: ORDERED: Urine Culture COMMENTS: [id number] Procedure Result Reported Site Urine Culture Final 09/10/18- 0847 ML Organism 1 ESCHERICHIA COLI [place] Count >100,000 (Many) CFU/ML 1. ESCHERICHIA COLI [...] . END OF REPORT DEPARTMENT OF PATHOLOGY, [address] [place] [address] Dax Devries M.D. Director [facility] # [id number] 10 [id number] It is recognized that currently available [...] confidence interval of 99.78 to 99.96%. 12 [id number] SEE RESULT BELOW Name: CHRISTINA MEDEROS : [address]: Jovanni Raya MD Acct: [id number] Unit: [id number] AGE: 37 Location: [facility] Re06/23/18 SEX: F Status: DEP ER SPEC: [id number] MARILOU: 06/23/18-[address] [facility] [address]: Maxine NAVARRO REQ: [id number] RECD: 06/23/18 STATUS: HOLLAND BETTS DR: Denisa Raya MD _ SOURCE: URINE SPDESC: ORDERED: Urine Culture COMMENTS: [id number] Procedure Result Reported Site Urine Culture Final 06/25/18- 1249 ML No growth of clinically significant organisms * ML - Main Lab . END OF REPORT DEPARTMENT OF PATHOLOGY, [address] [place] [address] Dax Devries M.D. Director [facility] # [id number] 14 Z11.3 15 Performed at: - [address] [id number] Children'S Entertainer: Briseyda Mcelroy MD, Phone: [phone] Performed at: - [facility] [id number] Children'S Entertainer: Crescencio Samuel MD, Phone: [phone] INFCE Result Units: s/co ratio Negative: < 0.8 Indeterminate: 0.8 - 0.9 Positive: > 0.9 The CDC recommends that a positive HCV antibody result be followed up with a HCV Nucleic Acid Amplification test (791303). 17 REFERENCE RANGES BELOW ARE APPLICABLE TO [...] Jimenez, 2015. Pediatric Reference Intervals, 7th Ed, [employer], 2011. 19 VERIFIED BY REPEAT ANALYSIS. 20 LDL-C is now calculated using the Fareed-Felix calculation, which is a validated novel method providing better accuracy than the Friedewald equation in the estimation of LDL-C. Fareed HIDALGO et al.SHI.2013;310(10):5441-2290 (http://EVRYTHNG.weezim.com/faq/SUY442) Desirable range <100 mg/dL for patients with [...] Jimenez, 2015. Pediatric Reference Intervals, 7th Ed, [employer], 2010. 28 VERIFIED BY REPEAT ANALYSIS. 29 LDL-CHOLESTEROL [...] TRIMESTER - 0.43 - 2.91 mIU/L 32 Public Health Staff Nurse: [id number] ALEXUS MONTES DE OCA 33 Note: Persistent [...] - 2.91 mIU/L 39 RUN DATE: 09/17/12 [facility] LAB LIVE PAGE 1 RUN TIME: [address] [place] [id number] Specimen Inquiry Name: ROSA MCHRISTINA Mikie : [address]: Mehnaz Lam MD Acct: [id number] Unit: [id number] AGE: 31 Location: [facility] Re09/15/12 SEX: F Status: DEP ER SPEC: [id number] MARILOU: 09/15/12-[address] [facility] [address]: Mehnaz Lam MD REQ: [id number] RECD: 09/15/12 STATUS: HOLLAND BETTS DR: Denisa Henry MD _ SOURCE: THROAT SPDESC: ORDERED: Throat Beta Str Procedure Result Verified Site Throat Beta Strep Culture Final 09/17/12- 728 ML Negative For Group A Beta Streptococcus END OF REPORT * ML=Testing performed at Main Lab DEPARTMENT OF PATHOLOGY, [address] [place] [address] Dax Devries M.D. [facility] Permit #[id number] 40 RUN DATE: 07/05/12 [facility] NMI LIVE PAGE 1 RUN TIME: 928 Specimen Inquiry RUN USER: INTERFACE Name: CHRISTINA MEDEROS Status: DEP CLI Re07/03/12 Age/Sex: 31/F Unit#: [id number] Location: [facility] : [birth year] SPEC #: [id number] MARILOU: 07/03/12 STATUS: HOLLAND REQ #: [id number] RECD: 07/03/[address] [facility] [address]: Sabino MENSAH,Nic Umaña SOURCE: URINE ENTR: 07/03/[address] [facility] [address]: Denisa Henry MD [facility]: ORDERED: URINE C S QUERIES: SPECIMEN DESCRIPTION: [...] *These antibiotics are not available in the [facility] Formulary. Contact the Microbiology Department for any additional antibiotic reporting. [facility] Permit #[id number] [address] [place] [address] DEPARTMENT OF PATHOLOGY, [address] [place] [address] [facility] Permit #[id number] Dax Devries M.D. Director Eunice Suárez M.D. [employer] 41 RUN DATE: 11/05/11 [facility] NMI LIVE PAGE 1 RUN TIME: 1149 Specimen Inquiry RUN USER: INTERFACE Name: CHRISTINA MEDEROS Mikie Status: SHANTHI CLI Re11/02/11 Age/Sex: 31/F Unit#: [id number] Location: [facility] : 78 SPEC #: [id number] MARILOU: 11/02/11 STATUS: COMP REQ #: [id number] RECD: 11/03/11-[address]: Genaro MENSAH,Mehnaz Daniel SOURCE: URINE ENTR: 11/03/[address]: Elaine MENSAH,Denisa [facility]: ORDERED: URINE C S QUERIES: SPECIMEN DESCRIPTION: URINE, CLEAN CATCH ACT WKST: UR 11/05/11 #1 Procedure Result Verified Site > URINE CULTURE SENSITIVI Final 11/05/11- 1149 ML SCANT NORMAL URETHRAL OR PERINEAL ILEANA - [facility] Permit #[id number] [address] [place] [address] DEPARTMENT OF PATHOLOGY, [address] [place] [address] [facility] Permit #[id number] Dax Devries M.D. Director Eunice Suárez M.D. [employer] 42 GRAM NEGATIVE BACILLI GREATER THAN 100,000 [...] change was based on recommendations from the [employer]. 47 Please note change in reference range effective 08 . 48 Specimen: [id number] - TEST: LFT EXTRA SST TUBE DRAWN [...] FOR RACE, IF THE PATIENT'S RACE IS -BRAZILIAN, THE GFR ESTIMATE MUST BE MULTIPLIED BY A FACTOR OF 1.21. 59 TSH REFERENCE RANGE: FIRST TRIMESTER - 0.30 - 4.50 mU/L SECOND TRIMESTER - 0.50 - 4.60 mU/L THIRD TRIMESTER - 0.80 - 5.20 mU/L Procedures Date Code Description Status 10/07/2014 45749 Non-Invcorrotid/Comp /Bilat Study Completed 05/08/2014 68036 Ear Lavage Completed Encounters Type Date Location Provider Dx Diagnosis Office Visit 02/07/2019 Main Office Denisa Henry M.D. F41.1 Generalized anxiety 11:00a disorder N97.9 Female infertility, unspecified Office Visit 12/04/2018 3:30p Main Office Artie Jacobs1.1 Generalized anxiety M.D. disorder K21.9 Gastro-esophageal reflux disease without esophagitis Office Visit 10/10/2018 1:30p Main Office Artie Jacobs1.1 Generalized anxiety M.D. disorder Office Visit 08/15/2018 3:00p Main Office Artie Jacobs1.1 Generalized anxiety M.D. disorder Office Visit 07/12/2018 3:30p Main Office Denisa Henry F41.1 Generalized anxiety M.D. disorder N76.0 Acute vaginitis M26.601 Right temporomandibular joint disorder, unspecified Office Visit 05/18/2018 10:00a Main Office Denisa Henry F41.1 Generalized anxiety M.D. disorder S91.312A Laceration [...] disorder Office Visit 10/12/2016 3:15p Main Office Denisa Henry F41.1 Generalized anxiety M.D. disorder J02.9 Acute pharyngitis, [...] Office Visit 05/01/2015 11:45a Main Office Denisa Henry, 300.02 Anxiety Disorder M.D. Generalized 850.0 Concussion [...] Office Visit 10/14/2008 3:15p Main Office Denisa Henry 300.02 Anxiety Disorder M.D. Generalized Office Visit 08/26/2008 3:30p Main Office Denisa Henry 300.02 Anxiety Disorder M.D. Generalized 780.52 Insomnia Unspecified Office Visit 07/08/2008 3:30p Main Office Densia Henry 300.02 Anxiety Disorder M.D. Generalized Office [...] Office Denisa Henry, 599.00 UTI / Urosepsis Mikie.DMorales Infection 530.81 Esophageal Reflux 460.00 Upper Respiratory [...] intake over the past 3 months contract swtyzjX86.1 Allergic rhinitis due to pollenComments:has asthmatic component
[2019-04-20 13:42] VITALS: BP 114/74
--- NOTE | 2019-04-20 13:58 | UC ---
Lower Extremity/Ankle HPI - HPI Summary HPI Summary: Pt c/o right distal foot pain and s/p sparring while kick boxing and hitting another person. Pt c/o distal foot pain from toes 3-5 with bruising on dorsal aspect of right foot from toes 3-5. Pain with weight bearing and movement. States she can not move toes due to pain - History of Current Complaint Chief Complaint: UCLowerExtremity Stated Complaint: RT FOOT INJURY Time Seen by Provider: 04/20/19 13:48 Hx Obtained From: Patient Hx Last Menstrual Period: 04/16/19 ?: No Onset/Duration: Sudden Onset, Lasting Days, Still Present Severity Initially: Moderate Severity Currently: Mild Pain Intensity: 2 Aggravating Factor(s): Standing, Ambulation Alleviating Factor(s): Rest, Elevation Able to Bear Weight: Yes - Risk Factors Gout Risk Factors: Negative DVT Risk Factors: Negative Septic Arthritis Risk Factor: Negative - Allergies/Home Medications Allergies/Adverse Reactions: Allergies Allergy/AdvReac Type Severity Reaction Status Date / Time NSAIDS (Non-Steroidal Allergy Difficulty Verified 04/20/19 13:39 Anti-Inflamma Breathing PMH/Surg Hx/FS Hx/Imm Hx Previously Healthy: Yes - Surgical History Surgical History: Yes Surgery Procedure, Year, and Place: Tonsillectomy, 2003, [facility] [place] - Family History Known Family History: Positive: None Negative: Cardiac Disease, Hypertension, Diabetes - Social History Occupation: Employed Full-time Lives: With Family Alcohol Use: Occasionally Substance Use Type: None Smoking Status (MU): Former Smoker Type: Cigarettes Amount Used/How Often: 2-3 CIGS DAILY Have You Smoked in the Last Year: No Household Exposure Type: Cigarettes - Immunization History Most Recent Influenza Vaccination: none Vaccination Up to Date: Yes Review of Systems All Other Systems Reviewed And Are Negative: Yes Constitutional: Positive: Negative Skin: Positive: Bruising - right dorsal distal foot Eyes: Positive: Negative ENT: Positive: Negative Respiratory: Positive: Negative Cardiovascular: Positive: Negative Gastrointestinal: Positive: Negative Genitourinary: Positive: Negative Motor: Positive: Decreased ROM - toes right foot Neurovascular: Positive: Negative Musculoskeletal: Positive: Arthralgia, Decreased ROM, Myalgia Neurological: Positive: Negative Psychological: Positive: Negative Is Patient Immunocompromised?: No Physical Exam Triage Information Reviewed: Yes Appearance: Well-Appearing Vital Signs: Initial Vital Signs Temp 98.7 F 04/20/19 13:35 Pulse 66 04/20/19 13:35 Resp 16 04/20/19 13:35 BP 114/74 04/20/19 13:35 Pulse Ox 100 04/20/19 13:35 Vital Signs Reviewed: Yes Eye Exam: Normal Eyes: Positive: Other: - wandering right eye ENT Exam: Normal Dental Exam: Normal Neck exam: Normal Respiratory: Positive: No respiratory distress Musculoskeletal: Positive: Strength Limited @ - right distal foot, ROM Limited @ - right distal foot Neurological Exam: Normal Psychological Exam: Normal Skin Exam: Other - bruising right distal foot dorsal aspect from toes 3-5 Diagnostics - Radiology No standard instances Radiology Interpretation Completed By: Radiologist - IMPRESSION: NO ACUTE OSSEOUS INJURY. IF SYMPTOMS PERSIST, RECOMMEND REPEAT IMAGING. Lower Extremity Course/Dx - Differential Dx/Diagnosis Differential Diagnosis/HQI/PQRI: Contusion, Fracture (Closed) Provider Diagnosis: Contusion of right foot Discharge - Sign-Out/Discharge Documenting (check all that apply): Patient Departure All imaging exams completed and their final reports reviewed: Yes - Discharge Plan Condition: Stable Disposition: HOME Patient Education Materials: Foot Contusion (ED), R.I.C.E. Treatment (ED) Referrals: Denisa Henry MD [Primary Care Provider] - If Needed Cameron Zarate MD [Medical Doctor] - If Needed - Billing Disposition and Condition Condition: STABLE Disposition: Home
== END 2019-04-20 14:38 | disposition home or self-care (01) ==
LOC: UCCORT 13:13
DX: S90.31XA Contusion of right foot, initial encounter (principal); W51.XXXA Accidental striking against or bumped into by another person, initial encounter; Y93.75 Activity, martial arts; Y92.9 Unspecified place or not applicable; Z87.891 Personal history of nicotine dependence; Z88.6 Allergy status to analgesic agent
CPT/HCPCS: 99211; G0463